=== PATIENT | male | born 1970 | race Two or more races ===

== ENCOUNTER 2019-07-26 17:43 | Inpatient (IN) | payer BC ==
[~2019-07-26] VITALS: Ht 177.8 cm; Wt 95.1 kg
[2019-07-26] MEDS ORDERED: LISI-130 PO (18:06)
[2019-07-26] MEDS ORDERED: ASPIRIN CHEWABLE 81 MG TABLET. PO ONE (18:15)
[2019-07-26 18:29] LABS: BASO # 0.1 x10^3/uL (0.0-0.2); BASO % 1 % (0-3); EOS # 0.2 x10^3/uL (0.0-0.7); EOS % 3 % (0-3); HEMATOCRIT 50.6 % (39.0-53.0); HEMOGLOBIN 17.5 g/dL (13.0-17.5); LYMPH # 1.7 x10^3/uL (1.0-4.8); LYMPH % 23 % (24-48); MEAN CORPUSCULAR HEMOGLOBIN 31 pg (25-35); MEAN CORPUSCULAR HGB CONC 35 g/dL (31-37); MEAN CORPUSCULAR VOLUME 90 fL (79-100); MONO # 0.4 x10^3/uL (0.0-1.1); MONO % 6 % (0-9); NEUT # 4.9 x10^3/uL (1.8-7.7); NEUT % 67 % (31-73); PLATELET COUNT 220 x10^3/uL (140-400); RED CELL DISTRIBUTION WIDTH 14.3 % (11.5-14.5); WHITE BLOOD COUNT 7.3 x10^3/uL (4.0-11.0)
[2019-07-26] MEDS ORDERED: LABETALOL 20 MG/4 ML DISP.SYRIN. IVP ONE (18:30)
--- NOTE | 2019-07-26 18:31 | PHYS DOC ---
Past Medical History Past Medical History: Hypertension Past Surgical History: No Surgical History Smoking Status: Never Smoker Alcohol Use: None Adult General Chief Complaint Chief Complaint: CHEST PAIN HPI HPI 49 yo male with underlying history of HTN presents to the ER with complaints of chest pain. Patient states pain started around 3pm today, he was watching TV at the time. Patient describes pain as pressure sensation. Patient states the pain has been intermittent last a few minutes at a time. Patient states pain improved currently however remains. Patient BP 210 systolically. Patient denies headache or visual changes at this time. Nothing makes his symptoms worse, nothing makes his symptoms better. Patient denies nausea on exam. Review of Systems Review of Systems Constitutional: Denies fever or chills [] Eyes: Denies change in visual acuity, redness, or eye pain [] HENT: Denies nasal congestion or sore throat [] Respiratory: Denies cough or shortness of breath [] Cardiovascular: No additional information not addressed in HPI [] GI: Denies abdominal pain, nausea, vomiting, bloody stools or diarrhea [] : Denies dysuria or hematuria [] Musculoskeletal: Denies back pain or joint pain [] Integument: Denies rash or skin lesions [] Neurologic: Denies headache, focal weakness or sensory changes [] Endocrine: Denies polyuria or polydipsia [] All other systems were reviewed and found to be within normal limits, except as documented in this note. Current Medications Current Medications Current Medications Medications (Trade) Dose Ordered Sig/Ryley Start Time Stop Time Status Last Admin Dose Admin Aspirin (Children'S Aspirin) 324 mg 1X ONCE 07/26/19 18:15 07/26/19 18:17 DC 07/26/19 18:47 324 MG Heparin Sodium (Porcine) (Heparin Sodium) 2,450 unit PRN Q6HRS PRN 07/26/19 19:15 Heparin Sodium/ Dextrose 250 ml @ 0 mls/hr CONT PRN 07/26/19 19:15 Labetalol HCl (Normodyne Iv Push) 10 mg 1X ONCE 07/26/19 18:30 07/26/19 18:31 DC 07/26/19 18:48 10 MG Nitroglycerin (Nitrostat) 0.4 mg PRN Q5MIN PRN 07/26/19 18:15 07/27/19 18:14 07/26/19 19:18 0.4 MG Allergies Allergies Allergies Coded Allergies Type Severity Reaction Last Updated Verified No Known Drug Allergies 07/26/19 No Physical Exam Physical Exam Constitutional: Well developed, well nourished, no acute distress, non-toxic appearance. [] HENT: Normocephalic, atraumatic, bilateral external ears normal, oropharynx moist, no oral exudates, nose normal. [] Eyes: PERRLA, EOMI, conjunctiva normal, no discharge. [] Neck: Normal range of motion, no tenderness, supple, no stridor. [] Cardiovascular:Heart rate regular rhythm, no murmur [] Lungs & Thorax: Bilateral breath sounds clear to auscultation [] Abdomen: Bowel sounds normal, soft, no tenderness, no masses, no pulsatile masses. [] Skin: Warm, dry, no erythema, no rash. [] Back: No tenderness, no CVA tenderness. [] Extremities: No tenderness, no cyanosis, no clubbing, ROM intact, no edema. [] Neurologic: Alert and oriented X 3, normal motor function, normal sensory function, no focal deficits noted. [] Psychologic: Affect normal, judgement normal, mood normal. [] Current Patient Data Vital Signs Vital Signs Date Time Temp Pulse Resp B/P (MAP) Pulse Ox O2 Delivery O2 Flow Rate FiO2 07/26/19 19:18 69 173/109 07/26/19 17:43 98.3 16 98 Room Air 98.3 Lab Values Laboratory Tests Test 07/26/19 17:55 White Blood Count 7.3 x10^3/uL (4.0-11.0) Red Blood Count 5.60 x10^6/uL (4.30-5.70) Hemoglobin 17.5 g/dL (13.0-17.5) Hematocrit 50.6 % (39.0-53.0) Mean Corpuscular Volume 90 fL (79-100) Mean Corpuscular Hemoglobin 31 pg (25-35) Mean Corpuscular Hemoglobin Concent 35 g/dL (31-37) Red Cell Distribution Width 14.3 % (11.5-14.5) Platelet Count 220 x10^3/uL (140-400) Neutrophils (%) (Auto) 67 % (31-73) Lymphocytes (%) (Auto) 23 % (24-48) L Monocytes (%) (Auto) 6 % (0-9) Eosinophils (%) (Auto) 3 % (0-3) Basophils (%) (Auto) 1 % (0-3) Neutrophils # (Auto) 4.9 x10^3/uL (1.8-7.7) Lymphocytes # (Auto) 1.7 x10^3/uL (1.0-4.8) Monocytes # (Auto) 0.4 x10^3/uL (0.0-1.1) Eosinophils # (Auto) 0.2 x10^3/uL (0.0-0.7) Basophils # (Auto) 0.1 x10^3/uL (0.0-0.2) Sodium Level 140 mmol/L (136-145) Potassium Level 3.6 mmol/L (3.5-5.1) Chloride Level 101 mmol/L (98-107) Carbon Dioxide Level 27 mmol/L (21-32) Anion Gap 12 (6-14) Blood Urea Nitrogen 31 mg/dL (8-26) H Creatinine 1.6 mg/dL (0.7-1.3) H Estimated GFR (Cockcroft-Gault) 46.0 BUN/Creatinine Ratio 19 (6-20) Glucose Level 116 mg/dL (70-99) H Calcium Level 9.2 mg/dL (8.5-10.1) Magnesium Level 2.1 mg/dL (1.8-2.4) Total Bilirubin 0.4 mg/dL (0.2-1.0) Aspartate Amino Transferase (AST) 31 U/L (15-37) Alanine Aminotransferase (ALT) 40 U/L (16-63) Alkaline Phosphatase 97 U/L (46-116) Troponin I Quantitative 0.463 ng/mL (0.000-0.055) GE-Hid-R-Type Natriuretic Peptide 69 pg/mL (0-124) Total Protein 7.2 g/dL (6.4-8.2) Albumin 3.5 g/dL (3.4-5.0) Albumin/Globulin Ratio 0.9 (1.0-1.7) L Lipase 139 U/L (73-393) Laboratory Tests 07/26/19 17:55 Laboratory Tests 07/26/19 17:55 EKG EKG EKG reviewed patient with normal sinus rhythm, no evidence of ST elevation DE interpretation time 1814[] Radiology/Procedures Radiology/Procedures [facility] [address] [place] [address] IMAGING REPORT Signed PATIENT: ROGERIO DEXTERACCOUNT: [id number] : 1970 LOCATION: ER AGE: 49 SEX: M EXAM STATUS: REG ER ORD. PHYSICIAN: JAROCHO CHIU MD REASON: Chest Pain PROCEDURE: PORTABLE CHEST 1V AP chest. HISTORY: Chest pain AP view was taken of the chest. Patient's taken a very poor inspiration. Heart is upper normal in size. There is crowding of the vasculature. There are no confluent areas of infiltrate. Follow-up PA and lateral views with better inspiration would be of benefit. IMPRESSION: 1. Poor inspiration. 2. No definite infiltrate. Electronically signed by: Juan R Adan MD (07/26/2019 6:49 PM) [id number] DICTATED and SIGNED BY: JUAN R ADAN MD DATE: 07/26/191848 [] Course & Med Decision Making Course & Med Decision Making Pertinent Labs and Imaging studies reviewed. (See chart for details) []49 yo male with underlying history of HTN presents to the ER with complaints of chest pain. Patient states pain started around 3pm today, he was watching TV at the time. Patient describes pain as pressure sensation. Patient states the pain has been intermittent last a few minutes at a time. Patient states pain improved currently however remains. Patient BP 210 systolically. Patient denies headache or visual changes at this time. Nothing makes his symptoms worse, nothing makes his symptoms better. Patient denies nausea on exam. Labs/Imaging reviewed Labetalol 10mg IV x 1 NTG/ASA po upon arrival BP improved 180's systolically Repeat dose of Labetalol 10mg IV x 1 Trop elevated 0.4 - heparin drip initiated in ER Cardiology consult Rai Disclaimer Dragon Disclaimer This electronic medical record was generated, in whole or in part, using a voice recognition dictation system. The HEART Score for CP Pts HEART Score for Chest Pain: HEART Score for Chest Pain Response (Comments) Value History Moderately Suspicious 1 ECG Nonspecific Repolarizatio 1 Age >45 - < 65 1 Risk Factors 1 or 2 Risk Factors 1 Troponin >1-<3x Normal Limit 1 Total 5 Risk Factors: Risk Factors: DM, Current or recent (<one month) smoker, HTN, HLP, family history of CAD, obesity. Risk Scores: Score 0 - 3: 2.5% MACE over next 6 weeks - Discharge Home Score 4 - 6: 20.3% MACE over next 6 weeks - Admit for Clinical Observation Score 7 - 10: 72.7% MACE over next 6 weeks - Early Invasive Strategies Departure Departure Impression: Primary Impression: NSTEMI (non-ST elevated myocardial infarction) Additional Impression: Accelerated hypertension Disposition: ADMITTED INPATIENT Condition: STABLE Referrals: NO PCP (PCP) Critical Care Time Critical care time was 35 minutes exclusive of procedures. Problem Qualifiers JAROCHO CHIU MD Jul 26, 2019 18:31
[2019-07-26] MEDS: NITROGLYCERIN SUBLINGUAL 0.4 MG BOTTLE OF 25. SL PRN ×2 (18:47→19:18)
[2019-07-26 18:48] LABS: CALCIUM 9.2 mg/dL (8.5-10.1); CREATININE 1.6 mg/dL (0.7-1.3); POTASSIUM 3.6 mmol/L (3.5-5.1)
--- NOTE | 2019-07-26 18:52 | RAD ---
AP chest. HISTORY: Chest pain AP view was taken of the chest. Patient's taken a very poor inspiration. Heart is upper normal in size. There is crowding of the vasculature. There are no confluent areas of infiltrate. Follow-up PA and lateral views with better inspiration would be of benefit. IMPRESSION: 1. Poor inspiration. 2. No definite infiltrate. Electronically signed by: Juan R Wright MD (07/26/2019 6:49 PM) [id number]
[2019-07-26 18:54] LABS: ALBUMIN 3.5 g/dL (3.4-5.0); ALBUMIN/GLOBULIN RATIO 0.9 (1.0-1.7); MAGNESIUM 2.1 mg/dL (1.8-2.4); TOTAL BILIRUBIN 0.4 mg/dL (0.2-1.0); TOTAL PROTEIN 7.2 g/dL (6.4-8.2)
[2019-07-26] MEDS ORDERED: HEPARIN for IV BOLUS 10,000 UNIT/10 ML VIAL. IV ONE (19:15)
[2019-07-26 19:30] LABS: PROTHROMBIN TIME PATIENT 11.9 SEC (11.7-14.0)
[2019-07-26] MEDS ORDERED: ACETAMINOPHEN 325 MG TABLET. PO PRN (19:45)
[2019-07-26] MEDS ORDERED: NITROGLYCERIN SUBLINGUAL 0.4 MG BOTTLE OF 25. SL PRN (19:45)
[2019-07-26] MEDS ORDERED: ONDANSETRON PF 4 MG/2 ML VIAL. IV PRN (19:45)
[2019-07-26] MEDS: HEPARIN 25,000UTS/250ML PREMIX 250 ML IV PRN (19:46)
[2019-07-26] MEDS ORDERED: LABETALOL 20 MG/4 ML DISP.SYRIN. IVP PRN (20:00)
--- NOTE | 2019-07-26 21:00 | NUR ---
Admit from ED via gurney to [facility]. A/O x 4. VSS. Ambulate from [facility] to bed in room with steady gait. Family at bedside. Patient Singaporean speaking. Son, Jose Armando, at bed side to interpret for patient. Admit for chest pain and elevated trop. Patient does not have chest pain on arrival but does have left shoulder/back pain rated 5/10. Orientated to room and call light. Reviewed POC to include Heparin drip and troponin lab draws with patient and son. Patient and son verbalized understanding. Patient resting in bed at this time with call light at hand.
[2019-07-26] MEDS: MORPHINE SULFATE 2 MG/ML VIAL. IV PRN (21:12)
[2019-07-26 21:30] VITALS: BP 163/96
[2019-07-26 23:40] VITALS: BP 169/99
[2019-07-27] VITALS (15 sets, daily range): BP systolic 144–184; BP diastolic 74–115
[2019-07-27 02:49] LABS: BASO % 0 % (0-3); EOS % 1 % (0-3); HEMATOCRIT 49.1 % (39.0-53.0); HEMOGLOBIN 16.7 g/dL (13.0-17.5); LYMPH # 1.2 x10^3/uL (1.0-4.8); LYMPH % 16 % (24-48); MEAN CORPUSCULAR HEMOGLOBIN 31 pg (25-35); MEAN CORPUSCULAR HGB CONC 34 g/dL (31-37); MEAN CORPUSCULAR VOLUME 91 fL (79-100); MONO # 0.4 x10^3/uL (0.0-1.1); MONO % 6 % (0-9); NEUT % 78 % (31-73); PLATELET COUNT 220 x10^3/uL (140-400); RED BLOOD COUNT 5.41 x10^6/uL (4.30-5.70); RED CELL DISTRIBUTION WIDTH 13.9 % (11.5-14.5); WHITE BLOOD COUNT 7.8 x10^3/uL (4.0-11.0)
[2019-07-27 03:05] LABS: ALBUMIN 3.1 g/dL (3.4-5.0); CALCIUM 8.3 mg/dL (8.5-10.1); CREATININE 1.4 mg/dL (0.7-1.3); GFR 53.6; TOTAL BILIRUBIN 0.4 mg/dL (0.2-1.0); TOTAL PROTEIN 6.1 g/dL (6.4-8.2)
[2019-07-27] MEDS: HEPARIN for IV BOLUS 10,000 UNIT/10 ML VIAL. IV PRN (03:36)
[2019-07-27] MEDS: MORPHINE SULFATE 2 MG/ML VIAL. IV PRN ×2 (03:49→07:25)
--- NOTE | 2019-07-27 04:11 | NUR ---
Reported Troponin levels 0.463, 2.831, 7.[address] Barber. Orders to continue Heparin drip and keep patient NPO. Morphine given prn for chest pain. Labetalol IV given for elevated BP. Patient resting in bed with call light at hand. at bedside.
--- NOTE | 2019-07-27 05:13 | EKG ---
[facility] [address] [place] [address] Test Date: 2019-07-26 Test Time: 17:48:46 Pat Name: ROGERIO DEXTER Department: Room: Gender: M Family Member Caretaker: JESSICA : 1970 Requested By: JAROCHO CHIU Order Number: [id number] Reading MD: Measurements Intervals [place] Rate: 72 P: 53 [place]: 150 QRS: -15 QRSD: 106 T: 47 QT: 348 QTc: 386 Interpretive Statements SINUS RHYTHM LEFT ATRIAL ABNORMALITY LEFTWARD AXIS RVH WITH REPOLARIZATION ABNORMALITY ABNORMAL ECG No previous ECG available for comparison
--- NOTE | 2019-07-27 08:59 | EKG ---
[facility] [address] [place] [address] Test Date: 2019-07-27 Test Time: 08:46:23 Pat Name: ROGERIO DEXTER Department: Room: 246 1 Gender: M Lead Pastor: : 1970 Requested By: 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 Order Number: [id number] Reading MD: Lawrence Bean MD Measurements Intervals [place] Rate: 66 P: 59 [place]: 148 QRS: -24 QRSD: 88 T: 5 QT: 366 QTc: 385 Interpretive Statements SINUS RHYTHM Electronically Signed On 07-27-2019 9:53:41 FOUNDRY SUPERVISOR by Lawrence Bean MD
[2019-07-27] MEDS ORDERED: IV NORMAL SALINE 1000ML BAG 1,000 ML IV ONE (09:00)
[2019-07-27 09:15] LABS: CHOLESTEROL/HDL RATIO 5.1
[2019-07-27] MEDS ORDERED: LABETALOL 20 MG/4 ML DISP.SYRIN. IVP PRN (09:15)
--- NOTE | 2019-07-27 09:25 | PDOC2 ---
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 ACCESS SERVICE REPRESENTATIVE 07/27/19 0925: CARDIAC CONSULT DATE OF CONSULT Date of Consult DATE: 07/27/19 TIME: 09:09 REASON FOR CONSULT Reason for Consult: NSTEMI, Accelerated HTN REFERRING PHYSICIAN Referring Physician: Ariane SOURCE Source: Chart review, Patient HISTORY OF PRESENT ILLNESS HISTORY OF PRESENT ILLNESS This is a pleasant 49 yo male admitted for complains of chest pain. Details interpreted by RN. Reports that he was laying in bed and watching TV when he started having stabbing pain to his left chest that eventually went to his upper back. No significant dyspnea but associated with nausea. This continued on since 3 PM. No recent changes to his activity tolerance, PADILLA or exertional associated with his job that requires heavy exertion. Reports that he has HTN but only has been taking his 1 BP med 2-3 times a week. He has not been hospitalized for over 30 yrs and does not see a doctor regularly. He does have semblance UMM with pointing out that he snores at night and also has some preiods where he stops breathing but no PND or orthopnea and no peripheral edema. Upon admission he was noted with high BP. To add he has been having upper shoulder primarily to the back below his neck region lately. Denies any frequent NSAID use. Denies taking any analgesic for the discomfort. As an inpt he has received NTG and morphine. PAST MEDICAL HISTORY Past Medical History HTN otherwise no other pertinent history PAST SURGICAL HISTORY Past Surgical History: Appendectomy FAMILY HISTORY Family History noncontributory SOCIAL HISTORY Smoke: No ALCOHOL: none Drugs: None Lives: with Family CURRENT MEDICATIONS CURRENT MEDICATIONS Current Medications Medications (Trade) Dose Ordered Sig/Ryley Route PRN Reason Start Time Stop Time Status Last Admin Dose Admin Aspirin (Children'S Aspirin) 324 mg 1X ONCE PO 07/26/19 18:15 07/26/19 18:17 DC 07/26/19 18:47 Nitroglycerin (Nitrostat) 0.4 mg PRN Q5MIN PRN SL CP RATING > 1/10 07/26/19 18:15 07/26/19 19:47 DC 07/26/19 19:18 Labetalol HCl (Normodyne Iv Push) 10 mg 1X ONCE IVP 07/26/19 18:30 07/26/19 18:31 DC 07/26/19 18:48 Heparin Sodium (Porcine) (Heparin Sodium) 4,000 unit 1X ONCE IV 07/26/19 19:15 07/26/19 19:16 DC 07/26/19 19:43 Heparin Sodium/ Dextrose 250 ml @ 0 mls/hr CONT PRN IV PER PROTOCOL 07/26/19 19:15 07/26/19 19:46 Heparin Sodium (Porcine) (Heparin Sodium) 2,450 unit PRN Q6HRS PRN IV FOR UFH LEVEL LESS THAN 0.2 07/26/19 19:15 07/27/19 03:36 Morphine Sulfate (Morphine Sulfate) 2 mg PRN Q2HR PRN IV PAIN 07/26/19 19:45 07/27/19 19:44 07/27/19 07:25 Labetalol HCl (Normodyne Iv Push) 10 mg PRN Q4HRS PRN IVP ELEVATED BP, SEE COMMENTS 07/26/19 20:00 07/27/19 03:59 ALLERGIES ALLERGIES: Coded Allergies: No Known Drug Allergies (Unverified , 07/26/19) ROS Review of System 14 point ROS evluated with pertinent positives noted per HPI PHYSICAL EXAM General: Alert, Oriented X3, Cooperative, No acute distress HEENT: Atraumatic, Mucous membr. moist/pink Lungs: Clear to auscultation, Normal air movement Heart: Regular rate (SR), Normal S1, Normal S2, No murmurs Abdomen: Soft, No tenderness Extremities: No cyanosis, No edema Skin: No breakdown Neuro: Normal speech, Sensation intact Psych/Mental Status: Mental status NL, Mood NL MUSCULOSKELETAL: Osteoarthritic changes both hands VITALS/I&O VITALS/I&O: Vital Signs Date Time Temp Pulse Resp B/P (MAP) Pulse Ox O2 Delivery O2 Flow Rate FiO2 07/27/19 07:25 16 Room Air 07/27/19 07:00 97.8 68 166/105 (125) 97 97.8 I & O 07/26/19 07/26/19 07/27/19 15:00 23:00 07:00 Intake Total 0 ml 400 ml Output Total 1 ml Balance 0 ml 399 ml LABS Lab: Laboratory Tests Test 07/26/19 17:55 07/26/19 22:29 07/27/19 01:40 White Blood Count 7.3 x10^3/uL (4.0-11.0) 7.8 x10^3/uL (4.0-11.0) Red Blood Count 5.60 x10^6/uL (4.30-5.70) 5.41 x10^6/uL (4.30-5.70) Hemoglobin 17.5 g/dL (13.0-17.5) 16.7 g/dL (13.0-17.5) Hematocrit 50.6 % (39.0-53.0) 49.1 % (39.0-53.0) Mean Corpuscular Volume 90 fL (79-100) 91 fL (79-100) Mean Corpuscular Hemoglobin 31 pg (25-35) 31 pg (25-35) Mean Corpuscular Hemoglobin Concent 35 g/dL (31-37) 34 g/dL (31-37) Red Cell Distribution Width 14.3 % (11.5-14.5) 13.9 % (11.5-14.5) Platelet Count 220 x10^3/uL (140-400) 220 x10^3/uL (140-400) Neutrophils (%) (Auto) 67 % (31-73) 78 % (31-73) H Lymphocytes (%) (Auto) 23 % (24-48) L 16 % (24-48) L Monocytes (%) (Auto) 6 % (0-9) 6 % (0-9) Eosinophils (%) (Auto) 3 % (0-3) 1 % (0-3) Basophils (%) (Auto) 1 % (0-3) 0 % (0-3) Neutrophils # (Auto) 4.9 x10^3/uL (1.8-7.7) 6.0 x10^3/uL (1.8-7.7) Lymphocytes # (Auto) 1.7 x10^3/uL (1.0-4.8) 1.2 x10^3/uL (1.0-4.8) Monocytes # (Auto) 0.4 x10^3/uL (0.0-1.1) 0.4 x10^3/uL (0.0-1.1) Eosinophils # (Auto) 0.2 x10^3/uL (0.0-0.7) 0.0 x10^3/uL (0.0-0.7) Basophils # (Auto) 0.1 x10^3/uL (0.0-0.2) 0.0 x10^3/uL (0.0-0.2) Prothrombin Time 11.9 SEC (11.7-14.0) Prothrombin Time INR 0.9 (0.8-1.1) Activated Partial Thromboplast Time 29 SEC (24-38) Sodium Level 140 mmol/L (136-145) 137 mmol/L (136-145) Potassium Level 3.6 mmol/L (3.5-5.1) 4.0 mmol/L (3.5-5.1) Chloride Level 101 mmol/L (98-107) 103 mmol/L (98-107) Carbon Dioxide Level 27 mmol/L (21-32) 25 mmol/L (21-32) Anion Gap 12 (6-14) 9 (6-14) Blood Urea Nitrogen 31 mg/dL (8-26) H 24 mg/dL (8-26) Creatinine 1.6 mg/dL (0.7-1.3) H 1.4 mg/dL (0.7-1.3) H Estimated GFR (Cockcroft-Gault) 46.0 53.6 BUN/Creatinine Ratio 19 (6-20) 17 (6-20) Glucose Level 116 mg/dL (70-99) H 150 mg/dL (70-99) H Calcium Level 9.2 mg/dL (8.5-10.1) 8.3 mg/dL (8.5-10.1) L Magnesium Level 2.1 mg/dL (1.8-2.4) Total Bilirubin 0.4 mg/dL (0.2-1.0) 0.4 mg/dL (0.2-1.0) Aspartate Amino Transferase (AST) 31 U/L (15-37) 80 U/L (15-37) H Alanine Aminotransferase (ALT) 40 U/L (16-63) 43 U/L (16-63) Alkaline Phosphatase 97 U/L (46-116) 73 U/L (46-116) Troponin I Quantitative 0.463 ng/mL (0.000-0.055) 2.831 ng/mL (0.000-0.055) 7.138 ng/mL (0.000-0.055) GX-Goa-I-Type Natriuretic Peptide 69 pg/mL (0-124) Total Protein 7.2 g/dL (6.4-8.2) 6.1 g/dL (6.4-8.2) L Albumin 3.5 g/dL (3.4-5.0) 3.1 g/dL (3.4-5.0) L Albumin/Globulin Ratio 0.9 (1.0-1.7) L 1.0 (1.0-1.7) Lipase 139 U/L (73-393) Heparin Anti-Xa Act, Unfractionated < 0.10 IU/mL (0.30-0.70) L Laboratory Tests 07/26/19 17:55 07/27/19 01:40 Laboratory Tests 07/26/19 17:55 07/27/19 01:40 ASSESSMENT/PLAN ASSESSMENT/PLAN 1. NSTEMI: ACS features 2. Accelerated HTN 3. Obesity 4. Med noncompliance 5. 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 HLP 7. Metabolic syndrome 8. Suspect CKD3 Recommendations [facility] today, risks and benefits discussed and agreeable to proceed TTE, TSH, lipids, A1C, UA ASA, heparin drip. Start on low maintenance IVF for contrast prep. Labetolol IV PRN Discussed med compliance GDMT Will need outpt UMM workup Dietitian consult. JERRI PAN MD 07/27/19 1711: CARDIAC CONSULT ASSESSMENT/PLAN ASSESSMENT/PLAN 49-year-old man presenting to the hospital with chest pain and elevated troponin. 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 He also underwent complex PCI of the LAD as well. Continue monitoring closely with continuation of heparin drip and tirofiban drip given that he had no reflow in the distal LAD segment. Supportive care for now. We will follow along closely. 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 APRN Jul 27, 2019 09:25 JERRI PAN MD Jul 27, 2019 17:11
[2019-07-27] MEDS ORDERED: LABETALOL 20 MG/4 ML DISP.SYRIN. IVP ONE (09:30)
[2019-07-27] MEDS ORDERED: LIDOCAINE 1% PF 2 ML VIAL. ONE (09:32)
[2019-07-27] MEDS ORDERED: IODIXANOL 320 MG/ML 100 ML VIAL. ONE ×3 (09:33→10:57)
[2019-07-27] MEDS ORDERED: fentaNYL PF VIAL 100 MCG/2 ML VIAL ONE (09:34)
[2019-07-27] MEDS ORDERED: MIDAZOLAM HCL/PF 5 MG/5 ML VIAL. ONE (09:34)
[2019-07-27] MEDS ORDERED: HEPARIN for IV BOLUS 10,000 UNIT/10 ML VIAL. ONE (09:34)
[2019-07-27] MEDS ORDERED: VERAPAMIL 5 MG/2 ML VIAL. ONE (09:34)
[2019-07-27] MEDS ORDERED: NITROGLYCERIN 200 MCG/2 ML SYRINGE FOR CATH/VASC LAB. ONE ×2 (09:34→10:50)
[2019-07-27] MEDS ORDERED: LIDOCAINE 1% PF 2 ML VIAL. INJ ONE (10:00)
[2019-07-27] MEDS ORDERED: IODIXANOL 320 MG/ML 100 ML VIAL. IART ONE (10:00)
[2019-07-27] MEDS ORDERED: HEPARIN for IV BOLUS 10,000 UNIT/10 ML VIAL. IART ONE (10:00)
[2019-07-27] MEDS ORDERED: MIDAZOLAM HCL/PF 5 MG/5 ML VIAL. IV ONE (10:00)
[2019-07-27] MEDS ORDERED: VERAPAMIL 5 MG/2 ML VIAL. IART ONE (10:00)
[2019-07-27] MEDS ORDERED: NITROGLYCERIN 200 MCG/2 ML SYRINGE FOR CATH/VASC LAB. IART ONE (10:00)
[2019-07-27] MEDS ORDERED: fentaNYL PF VIAL 100 MCG/2 ML VIAL IV ONE (10:00)
[2019-07-27] MEDS ORDERED: TIROFIBAN 5MG -0.9% NS 100 ML IV ONE (10:11)
--- NOTE | 2019-07-27 10:15 | PDOC1 ---
History and Physical Date of Admission Date of Admission DATE: 07/27/19 TIME: 10:14 Identification/Chief Complaint Chief Complaint SEEN IN ER , 49 yo male with underlying history of HTN presents to the ER with complaints of chest pain. Patient states pain started around 3pm 07/26 , he was watching TV ///. Patient describes pain as pressure sensation. Patient states the pain has been intermittent last a few minutes at a time. Patient states pain improved currently however remains. Patient BP 210 systolically IN ER . /// denies headache or visual changes Past Medical History Past Medical History Past Medical History Past Medical History: Hypertension Past Surgical History: No Surgical History Smoking Status: Never Smoker Alcohol Use: None FHX HTN Past Surgical History Past Surgical History: Appendectomy Family History Family History: High Cholestrol, Hypertension Social History Smoke: No ALCOHOL: none Drugs: None Current Problem List Problem List Problems Medical Problems: (1) Accelerated hypertension Status: Acute (2) NSTEMI (non-ST elevated myocardial infarction) Status: Acute Current Medications Current Medications Current Medications Aspirin (Children'S Aspirin) 324 mg 1X ONCE PO Last administered on 07/26/19at 18:47; Start 07/26/19 at 18:15; Stop 07/26/19 at 18:17; Status DC Nitroglycerin (Nitrostat) 0.4 mg PRN Q5MIN PRN SL CP RATING > 1/10 Last administered on 07/26/19at 19:18; Start 07/26/19 at 18:15; Stop 07/26/19 at 19:47; Status DC Labetalol HCl (Normodyne Iv Push) 10 mg 1X ONCE IVP Last administered on 07/26/19at 18:48; Start 07/26/19 at 18:30; Stop 07/26/19 at 18:31; Status DC Heparin Sodium (Porcine) (Heparin Sodium) 4,000 unit 1X ONCE IV Last administered on 07/26/19at 19:43; Start 07/26/19 at 19:15; Stop 07/26/19 at 19:16; Status DC Heparin Sodium/ Dextrose 250 ml @ 0 mls/hr CONT PRN IV PER PROTOCOL Last administered on 07/26/19at 19:46; Start 07/26/19 at 19:15 Heparin Sodium (Porcine) (Heparin Sodium) 2,450 unit PRN Q6HRS PRN IV FOR UFH LEVEL LESS THAN 0.2 Last administered on 07/27/19at 03:36; Start 07/26/19 at 19:15 Ondansetron HCl (Zofran) 4 mg PRN Q8HRS PRN IV NAUSEA/VOMITING; Start 07/26/19 at 19:45; Stop 07/27/19 at 19:44 Morphine Sulfate (Morphine Sulfate) 2 mg PRN Q2HR PRN IV PAIN Last administered on 07/27/19at 07:25; Start 07/26/19 at 19:45; Stop 07/27/19 at 19:44 Acetaminophen (Tylenol) 650 mg PRN Q4HRS PRN PO FEVER; Start 07/26/19 at 19:45; Stop 07/27/19 at 19:44 Nitroglycerin (Nitrostat) 0.4 mg PRN Q5MIN PRN SL CHEST PAIN; Start 07/26/19 at 19:45; Stop 07/27/19 at 19:44 Labetalol HCl (Normodyne Iv Push) 10 mg PRN Q4HRS PRN IVP ELEVATED BP, SEE COMMENTS Last administered on 07/27/19at 03:59; Start 07/26/19 at 20:00; Stop 07/27/19 at 09:11; Status DC Sodium Chloride 1,000 ml @ 75 mls/hr 1X ONCE IV ; Start 07/27/19 at 09:00; Stop 07/27/19 at 22:19 Labetalol HCl (Normodyne Iv Push) 20 mg PRN Q4HRS PRN IVP ELEVATED BP, SEE COMMENTS; Start 07/27/19 at 09:15 Atorvastatin Calcium (Lipitor) 40 mg QHS PO ; Start 07/27/19 at 21:00 Labetalol HCl (Normodyne Iv Push) 20 mg 1X ONCE IVP Last administered on 07/27/19at 09:30; Start 07/27/19 at 09:30; Stop 07/27/19 at 09:31; Status DC Lidocaine HCl (Xylocaine-Mpf 1% 2ml Vial) 2 ml STK-MED ONCE .ROUTE ; Start 07/27/19 at 09:32; Stop 07/27/19 at 09:32; Status DC Heparin Sodium/ Sodium Chloride 1,000 ml @ As Directed STK-MED ONCE .ROUTE ; Start 07/27/19 at 09:32; Stop 07/27/19 at 09:33; Status DC Iodixanol (Visipaque 320) 100 ml STK-MED ONCE .ROUTE ; Start 07/27/19 at 09:33; Stop 07/27/19 at 09:34; Status DC Fentanyl Citrate (Fentanyl 2ml Vial) 100 mcg STK-MED ONCE .ROUTE ; Start 07/27/19 at 09:34; Stop 07/27/19 at 09:34; Status DC Midazolam HCl (Versed) 5 mg STK-MED ONCE .ROUTE ; Start 07/27/19 at 09:34; Stop 07/27/19 at 09:34; Status DC Heparin Sodium (Porcine) (Heparin Sodium) 10,000 unit STK-MED ONCE .ROUTE ; Start 07/27/19 at 09:34; Stop 07/27/19 at 09:34; Status DC Verapamil HCl (Verapamil) 5 mg STK-MED ONCE .ROUTE ; Start 07/27/19 at 09:34; Stop 07/27/19 at 09:34; Status DC Nitroglycerin (Nitroglycerin) 200 mcg STK-MED ONCE .ROUTE ; Start 07/27/19 at 09:34; Stop 07/27/19 at 09:35; Status DC Nitroglycerin (Nitroglycerin) 200 mcg 1X ONCE IART ; Start 07/27/19 at 10:00; Stop 07/27/19 at 10:05; Status DC Verapamil HCl (Verapamil) 2.5 mg 1X ONCE IART ; Start 07/27/19 at 10:00; Stop 07/27/19 at 10:05; Status DC Heparin Sodium (Porcine) (Heparin Sodium) 2,500 unit 1X ONCE IART ; Start 07/27/19 at 10:00; Stop 07/27/19 at 10:05; Status DC Heparin Sodium/ Sodium Chloride (HEPARIN for ARTERIAL LINE FLUSH) 1,000 unit 1X ONCE IART ; Start 07/27/19 at 10:00; Stop 07/27/19 at 10:05; Status DC Heparin Sodium/ Sodium Chloride (HEPARIN for ARTERIAL LINE FLUSH) 1,000 unit 1X ONCE IART ; Start 07/27/19 at 10:00; Stop 07/27/19 at 10:05; Status DC Midazolam HCl (Versed) 5 mg 1X ONCE IV ; Start 07/27/19 at 10:00; Stop 07/27/19 at 10:05; Status DC Fentanyl Citrate (Fentanyl 2ml Vial) 100 mcg 1X ONCE IV ; Start 07/27/19 at 10:00; Stop 07/27/19 at 10:05; Status DC Iodixanol (Visipaque 320) 100 ml 1X ONCE IART ; Start 07/27/19 at 10:00; Stop 07/27/19 at 10:05; Status DC Lidocaine HCl (Xylocaine-Mpf 1% 2ml Vial) 2 ml 1X ONCE INJ ; Start 07/27/19 at 10:00; Stop 07/27/19 at 10:05; Status DC Tirofiban/Sodium Chloride 100 ml @ As Directed STK-MED ONCE IV ; Start 07/27/19 at 10:11; Stop 07/27/19 at 10:11; Status DC Active Scripts Active Reported Lisinopril 40 Mg Tablet 1 Tab PO DAILY Allergies Allergies: Coded Allergies: No Known Drug Allergies (Unverified , 07/26/19) ROS Review of System Review of Systems Review of Systems Constitutional: Denies fever or chills [] Eyes: Denies change in visual acuity, redness, or eye pain [] HENT: Denies nasal congestion or sore throat [] Respiratory: Denies cough or shortness of breath [] Cardiovascular: No additional information not addressed in HPI [] GI: Denies abdominal pain, nausea, vomiting, bloody stools or diarrhea [] : Denies dysuria or hematuria [] Musculoskeletal: Denies back pain or joint pain [] Integument: Denies rash or skin lesions [] Neurologic: Denies headache, focal weakness or sensory changes [] Endocrine: Denies polyuria or polydipsia [] 14 PT systems were reviewed and found to be within normal limits, except as documented Physical Exam Physical Exam Physical Exam Physical Exam Constitutional: Well developed, well nourished, no acute distress, non-toxic appearance. [] HENT: Normocephalic, atraumatic, bilateral external ears normal, oropharynx moist, no oral exudates, nose normal. [] Eyes: PERRLA, EOMI, conjunctiva normal, no discharge. [] Neck: Normal range of motion, no tenderness, supple, no stridor. [] Cardiovascular:Heart rate regular rhythm, no murmur [] Lungs & Thorax: Bilateral breath sounds clear to auscultation [] Abdomen: Bowel sounds normal, soft, no tenderness, no masses, no pulsatile masses. [] Skin: Warm, dry, no erythema, no rash. [] Back: No tenderness, no CVA tenderness. [] Extremities: No tenderness, no cyanosis, no clubbing, ROM intact, no edema. [] Neurologic: Alert and oriented X 3, normal motor function, normal sensory function, no focal deficits noted. [] Psychologic: Affect normal, judgment normal, mood normal. [] General: Alert, Oriented X3, Cooperative, No acute distress HEENT: Atraumatic, PERRLA, EOMI, Mucous membr. moist/pink Lungs: Normal air movement Heart: RRR Breasts: Not examined Abdomen: Soft Rectal Exam: not examined Extremities: No cyanosis Neuro: Normal speech, Cranial nerves 3-12 NL Psych/Mental Status: Mental status NL, Mood NL Vitals Vitals Vital Signs Date Time Temp Pulse Resp B/P (MAP) Pulse Ox O2 Delivery O2 Flow Rate FiO2 07/27/19 09:30 76 167/105 07/27/19 07:25 16 Room Air 07/27/19 07:00 97.8 97 97.8 Labs Labs Laboratory Tests Test 07/26/19 17:55 07/26/19 22:29 07/27/19 01:40 White Blood Count 7.3 x10^3/uL (4.0-11.0) 7.8 x10^3/uL (4.0-11.0) Red Blood Count 5.60 x10^6/uL (4.30-5.70) 5.41 x10^6/uL (4.30-5.70) Hemoglobin 17.5 g/dL (13.0-17.5) 16.7 g/dL (13.0-17.5) Hematocrit 50.6 % (39.0-53.0) 49.1 % (39.0-53.0) Mean Corpuscular Volume 90 fL (79-100) 91 fL (79-100) Mean Corpuscular Hemoglobin 31 pg (25-35) 31 pg (25-35) Mean Corpuscular Hemoglobin Concent 35 g/dL (31-37) 34 g/dL (31-37) Red Cell Distribution Width 14.3 % (11.5-14.5) 13.9 % (11.5-14.5) Platelet Count 220 x10^3/uL (140-400) 220 x10^3/uL (140-400) Neutrophils (%) (Auto) 67 % (31-73) 78 % (31-73) Lymphocytes (%) (Auto) 23 % (24-48) 16 % (24-48) Monocytes (%) (Auto) 6 % (0-9) 6 % (0-9) Eosinophils (%) (Auto) 3 % (0-3) 1 % (0-3) Basophils (%) (Auto) 1 % (0-3) 0 % (0-3) Neutrophils # (Auto) 4.9 x10^3/uL (1.8-7.7) 6.0 x10^3/uL (1.8-7.7) Lymphocytes # (Auto) 1.7 x10^3/uL (1.0-4.8) 1.2 x10^3/uL (1.0-4.8) Monocytes # (Auto) 0.4 x10^3/uL (0.0-1.1) 0.4 x10^3/uL (0.0-1.1) Eosinophils # (Auto) 0.2 x10^3/uL (0.0-0.7) 0.0 x10^3/uL (0.0-0.7) Basophils # (Auto) 0.1 x10^3/uL (0.0-0.2) 0.0 x10^3/uL (0.0-0.2) Prothrombin Time 11.9 SEC (11.7-14.0) Prothromb Time International Ratio 0.9 (0.8-1.1) Activated Partial Thromboplast Time 29 SEC (24-38) Sodium Level 140 mmol/L (136-145) 137 mmol/L (136-145) Potassium Level 3.6 mmol/L (3.5-5.1) 4.0 mmol/L (3.5-5.1) Chloride Level 101 mmol/L (98-107) 103 mmol/L (98-107) Carbon Dioxide Level 27 mmol/L (21-32) 25 mmol/L (21-32) Anion Gap 12 (6-14) 9 (6-14) Blood Urea Nitrogen 31 mg/dL (8-26) 24 mg/dL (8-26) Creatinine 1.6 mg/dL (0.7-1.3) 1.4 mg/dL (0.7-1.3) Estimated GFR (Cockcroft-Gault) 46.0 53.6 BUN/Creatinine Ratio 19 (6-20) 17 (6-20) Glucose Level 116 mg/dL (70-99) 150 mg/dL (70-99) Calcium Level 9.2 mg/dL (8.5-10.1) 8.3 mg/dL (8.5-10.1) Magnesium Level 2.1 mg/dL (1.8-2.4) Total Bilirubin 0.4 mg/dL (0.2-1.0) 0.4 mg/dL (0.2-1.0) Aspartate Amino Transf (AST/SGOT) 31 U/L (15-37) 80 U/L (15-37) Alanine Aminotransferase (ALT/SGPT) 40 U/L (16-63) 43 U/L (16-63) Alkaline Phosphatase 97 U/L (46-116) 73 U/L (46-116) Troponin I Quantitative 0.463 ng/mL (0.000-0.055) 2.831 ng/mL (0.000-0.055) 7.138 ng/mL (0.000-0.055) LQ-Tsr-B-Type Natriuretic Peptide 69 pg/mL (0-124) Total Protein 7.2 g/dL (6.4-8.2) 6.1 g/dL (6.4-8.2) Albumin 3.5 g/dL (3.4-5.0) 3.1 g/dL (3.4-5.0) Albumin/Globulin Ratio 0.9 (1.0-1.7) 1.0 (1.0-1.7) Lipase 139 U/L (73-393) Heparin Anti-Xa Act, Unfractionated < 0.10 IU/mL (0.30-0.70) Triglycerides Level 279 mg/dL (0-150) Cholesterol Level 250 mg/dL (0-200) LDL Cholesterol, Calculated 145 mg/dL (0-100) VLDL Cholesterol, Calculated 56 mg/dL (0-40) Non-HDL Cholesterol Calculated 201 mg/dL (0-129) HDL Cholesterol 49 mg/dL (40-60) Cholesterol/HDL Ratio 5.1 Thyroid Stimulating Hormone (TSH) 0.572 uIU/mL (0.358-3.74) Laboratory Tests Test 07/26/19 17:55 07/26/19 22:29 07/27/19 01:40 White Blood Count 7.3 x10^3/uL (4.0-11.0) 7.8 x10^3/uL (4.0-11.0) Red Blood Count 5.60 x10^6/uL (4.30-5.70) 5.41 x10^6/uL (4.30-5.70) Hemoglobin 17.5 g/dL (13.0-17.5) 16.7 g/dL (13.0-17.5) Hematocrit 50.6 % (39.0-53.0) 49.1 % (39.0-53.0) Mean Corpuscular Volume 90 fL (79-100) 91 fL (79-100) Mean Corpuscular Hemoglobin 31 pg (25-35) 31 pg (25-35) Mean Corpuscular Hemoglobin Concent 35 g/dL (31-37) 34 g/dL (31-37) Red Cell Distribution Width 14.3 % (11.5-14.5) 13.9 % (11.5-14.5) Platelet Count 220 x10^3/uL (140-400) 220 x10^3/uL (140-400) Neutrophils (%) (Auto) 67 % (31-73) 78 % (31-73) Lymphocytes (%) (Auto) 23 % (24-48) 16 % (24-48) Monocytes (%) (Auto) 6 % (0-9) 6 % (0-9) Eosinophils (%) (Auto) 3 % (0-3) 1 % (0-3) Basophils (%) (Auto) 1 % (0-3) 0 % (0-3) Neutrophils # (Auto) 4.9 x10^3/uL (1.8-7.7) 6.0 x10^3/uL (1.8-7.7) Lymphocytes # (Auto) 1.7 x10^3/uL (1.0-4.8) 1.2 x10^3/uL (1.0-4.8) Monocytes # (Auto) 0.4 x10^3/uL (0.0-1.1) 0.4 x10^3/uL (0.0-1.1) Eosinophils # (Auto) 0.2 x10^3/uL (0.0-0.7) 0.0 x10^3/uL (0.0-0.7) Basophils # (Auto) 0.1 x10^3/uL (0.0-0.2) 0.0 x10^3/uL (0.0-0.2) Prothrombin Time 11.9 SEC (11.7-14.0) Prothromb Time International Ratio 0.9 (0.8-1.1) Activated Partial Thromboplast Time 29 SEC (24-38) Sodium Level 140 mmol/L (136-145) 137 mmol/L (136-145) Potassium Level 3.6 mmol/L (3.5-5.1) 4.0 mmol/L (3.5-5.1) Chloride Level 101 mmol/L (98-107) 103 mmol/L (98-107) Carbon Dioxide Level 27 mmol/L (21-32) 25 mmol/L (21-32) Anion Gap 12 (6-14) 9 (6-14) Blood Urea Nitrogen 31 mg/dL (8-26) 24 mg/dL (8-26) Creatinine 1.6 mg/dL (0.7-1.3) 1.4 mg/dL (0.7-1.3) Estimated GFR (Cockcroft-Gault) 46.0 53.6 BUN/Creatinine Ratio 19 (6-20) 17 (6-20) Glucose Level 116 mg/dL (70-99) 150 mg/dL (70-99) Calcium Level 9.2 mg/dL (8.5-10.1) 8.3 mg/dL (8.5-10.1) Magnesium Level 2.1 mg/dL (1.8-2.4) Total Bilirubin 0.4 mg/dL (0.2-1.0) 0.4 mg/dL (0.2-1.0) Aspartate Amino Transf (AST/SGOT) 31 U/L (15-37) 80 U/L (15-37) Alanine Aminotransferase (ALT/SGPT) 40 U/L (16-63) 43 U/L (16-63) Alkaline Phosphatase 97 U/L (46-116) 73 U/L (46-116) Troponin I Quantitative 0.463 ng/mL (0.000-0.055) 2.831 ng/mL (0.000-0.055) 7.138 ng/mL (0.000-0.055) YT-Hig-U-Type Natriuretic Peptide 69 pg/mL (0-124) Total Protein 7.2 g/dL (6.4-8.2) 6.1 g/dL (6.4-8.2) Albumin 3.5 g/dL (3.4-5.0) 3.1 g/dL (3.4-5.0) Albumin/Globulin Ratio 0.9 (1.0-1.7) 1.0 (1.0-1.7) Lipase 139 U/L (73-393) Heparin Anti-Xa Act, Unfractionated < 0.10 IU/mL (0.30-0.70) Triglycerides Level 279 mg/dL (0-150) Cholesterol Level 250 mg/dL (0-200) LDL Cholesterol, Calculated 145 mg/dL (0-100) VLDL Cholesterol, Calculated 56 mg/dL (0-40) Non-HDL Cholesterol Calculated 201 mg/dL (0-129) HDL Cholesterol 49 mg/dL (40-60) Cholesterol/HDL Ratio 5.1 Thyroid Stimulating Hormone (TSH) 0.572 uIU/mL (0.358-3.74) Images Images AP chest. HISTORY: Chest pain AP view was taken of the chest. Patient's taken a very poor inspiration. Heart is upper normal in size. There is crowding of the vasculature. There are no confluent areas of infiltrate. Follow-up PA and lateral views with better inspiration would be of benefit. IMPRESSION: 1. Poor inspiration. 2. No definite infiltrate. Electronically signed by: Nagi Adan MD (07/26/2019 6:49 PM) [id number] DICTATED and SIGNED BY: NAGI ADAN MD DATE: 07/26/19 1849 VTE Prophylaxis Ordered VTE Prophylaxis Devices: Yes VTE Pharmacological Prophylaxi: Yes Assessment/Plan Assessment/Plan IMPRESSION 1, ACUTE NSTEMI: ACS 2. Accelerated HTN 3. Obesity 4. Med noncompliance 5. SLEEP APNEA 6. HYPERLIPIDEMIA 7. Metabolic syndrome PLAN ADMIT CVC BED CONSULT CARDIOLOGY RILEY JOHNSON MD Jul 27, 2019 10:15
[2019-07-27] MEDS: TIROFIBAN 5MG -0.9% NS 100 ML IV PRN ×3 (10:16→18:23)
[2019-07-27] MEDS ORDERED: HEPARIN for IV BOLUS 10,000 UNIT/10 ML VIAL. IV ONE (10:18)
[2019-07-27] MEDS ORDERED: NITROGLYCERIN 200 MCG/2 ML SYRINGE FOR CATH/VASC LAB. ICAR ONE (11:00)
[2019-07-27] MEDS ORDERED: PHENYLEPHRINE in 0.9% NACL PF 1 MG/10 ML SYRINGE. IV ONE (11:05)
[2019-07-27] MEDS ORDERED: ATROPINE 1 MG/10 ML DISP.SYRINGE. ONE (11:06)
[2019-07-27] MEDS ORDERED: NITROPRUSSIDE SODIUM 50 MG/2 ML VIAL IV ONE (11:11)
[2019-07-27] MEDS ORDERED: NITROPRUSSIDE 100MCG/ML SYRINGE. INT CORON ONE (11:30)
--- NOTE | 2019-07-27 11:35 | CARD ---
MR#: [id number] Date of Study: 07/27/2019 Ordering Physician: 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, Referring Physician: 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, Tech: Aretha Mitchell APPROVED REPORT EXAM: Two-dimensional and M-mode echocardiogram with Doppler and color Doppler. Other Information Quality : AverageHR: 78bpm Technically limited study due to body habitus. INDICATION Chest Pain Non STEMI RISK FACTORS Hypertension 2D DIMENSIONS Left Atrium(2D)3.6 (1.6-4.0cm)IVSd1.2 (0.7-1.1cm) Aortic Root(2D)3.0 (2.0-3.7cm)LVDd5.5 (3.9-5.9cm) LVOT Diameter1.9 (1.8-2.4cm)PWd1.3 (0.7-1.1cm) LVDs2.9 (2.5-4.0cm)FS (%) 46.3 % SV113.1 mlLVEF(%)77.1 (>50%) Aortic Valve AoV Peak Kian.141.0cm/sAoV VTI31.4cm AO Peak GR.7.9mmHgLVOT VTI 23.17cm AO Mean GR.6mmHg Mitral Valve MV E Nrxgzenw71.5cm/sMV E Peak Gr.3mmHg MV DECEL [id number] A Qynvusat79.5cm/s MV E Mean Gr.2mmHgE/A Ratio0.8 TDI Lateral E' P. V7.98cm/sMedial E' P. V8.11cm/s E/Lateral E'9.1E/Medial E'8.9 Tricuspid Valve TR P. Gfnanqfx199yd/sRAP [id number] TR Peak Gr.60ehRxVHUS34iiVb Pulmonary Vein S1 Zbgogytb64.7cm/sS2 Aelksekl99.76cm/s D2 Tlkvypjt29.8cm/sPVa [id number] LEFT VENTRICLE The left ventricle is normal size. There is mild to moderate concentric left ventricular hypertrophy. The left ventricular systolic function is low normal. The Ejection Fraction is 50%. Septal wall joanie on consistent with conduction abnormality. Mild global hypokinesis. Transmitral Doppler flow pattern is Grade I-abnormal relaxation pattern. RIGHT VENTRICLE The right ventricle is normal size. There is normal right ventricular wall thickness. The right ventr icular systolic function is normal. ATRIA The left atrium size is normal. The right atrium size is normal. The interatrial septum is intact wit h no evidence for an atrial septal defect or patent foramen ovale as noted on 2-D or Doppler imaging. AORTIC VALVE The aortic valve is normal in structure and function. Doppler and Color Flow revealed no significant aortic regurgitation. There is no significant aortic valvular stenosis. MITRAL VALVE The mitral valve is normal in structure and function. There is no evidence of mitral valve prolapse. There is no mitral valve stenosis. Doppler and Color Flow revealed no mitral valve regurgitation note d. TRICUSPID VALVE The tricuspid valve is not well visualized. Doppler and Color Flow revealed trace tricuspid regurgita tion with an estimated PAP of 26 mmHg. There is no tricuspid valve stenosis. PULMONIC VALVE The pulmonic valve is not well visualized. Doppler and Color Flow revealed no pulmonic valvular regur gitation. There is no pulmonic valvular stenosis. GREAT VESSELS The aortic root is normal in size. The ascending aorta is normal in size. The IVC is normal in size a nd collapses >50% with inspiration. PERICARDIAL EFFUSION There is no evidence of significant pericardial effusion. Critical Notification Critical Value: No <Conclusion> The left ventricular systolic function is low normal. The Ejection Fraction is 50%. Septal wall motion consistent with conduction abnormality. Mild global hypokinesis. Signed by : Lawrence Bean, Electronically Approved : 07/27/2019 11:35:19
[2019-07-27] MEDS ORDERED: PRASUGREL 10 MG TABLET. ONE (11:40)
[2019-07-27] MEDS ORDERED: PRASUGREL 10 MG TABLET. PO ONE (11:42)
--- NOTE | 2019-07-27 12:02 | NUR ---
SS following for discharge planning. SS reviewed pt chart. Pt is from home with spouse and is currently requiring oxygen. SS will continue to follow for discharge planning.
[2019-07-27 13:49] LABS: BILIRUBIN,URINE NEGATIVE (NEG); CLARITY,URINE CLEAR; COLOR,URINE YELLOW; NITRITE,URINE NEGATIVE (NEG); PROTEIN,URINE 100 mg/dL (NEG-TRACE); UROBILINOGEN,URINE 0.2 mg/dL (0.2 mg/dL)
[2019-07-27] MEDS ORDERED: amLODIPine BESYLATE 10 MG TABLET PO ONE ×2 (14:00→14:30)
--- NOTE | 2019-07-27 14:05 | EKG ---
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
[2019-07-27 14:09] LABS: BACTERIA,URINE 0 /HPF (0-FEW); RBC,URINE 0 /HPF (0-2); WBC,URINE 0 /HPF (0-4)
[2019-07-27] MEDS: LIDOCAINE (700MG/PATCH) PATCH. TD SCH (14:14)
[2019-07-27] MEDS: HYDROcodone/APAP 5/325MG 1 TAB TABLET PO PRN ×2 (14:16→21:21)
[2019-07-27] MEDS: HEPARIN 25,000UTS/250ML PREMIX 250 ML IV PRN (17:39)
[2019-07-27] MEDS: CARVEDILOL 6.25 MG TABLET. PO SCH (17:40)
[2019-07-27] MEDS: PATCH REMOVAL. MC SCH (21:00)
[2019-07-27] MEDS: ATORVASTATIN CALCIUM 40 MG TABLET. PO SCH (21:21)
[2019-07-27 23:08] LABS: HEMOGLOBIN A1C 5.8 % (4.8-5.6)
[2019-07-28] MEDS: TIROFIBAN 5MG -0.9% NS 100 ML IV PRN (01:21)
[2019-07-28] MEDS: HEPARIN for IV BOLUS 10,000 UNIT/10 ML VIAL. IV PRN (01:28)
[2019-07-28 02:36] VITALS: BP 139/85
[2019-07-28 07:15] VITALS: BP 159/94
[2019-07-28] MEDS ORDERED: ANTI-COAG MONITOR BY PHARMACY. MC PRN (08:15)
[2019-07-28] MEDS: CARVEDILOL 6.25 MG TABLET. PO SCH (08:49)
[2019-07-28] MEDS: LIDOCAINE (700MG/PATCH) PATCH. TD SCH (09:00)
--- NOTE | 2019-07-28 10:37 | PDOC ---
PROGRESS NOTES History of Present Illness History of Present Illness VTE Prophylaxis Ordered VTE Prophylaxis Devices: Yes VTE Pharmacological Prophylaxi: Yes Assessment/Plan Assessment/Plan IMPRESSION 1, ACUTE NSTEMI: ACS 2. Accelerated HTN 3. Obesity 4. Med noncompliance 5. SLEEP APNEA 6. HYPERLIPIDEMIA 7. Metabolic syndrome PLAN ADMIT CVC BED CONSULT CARDIOLOGY triple-vessel disease occluded obtuse marginal post PCI complex PCI of the LAD ASA 81 mg daily. 30 mg of effient today then 10 mg starting tomorrow. DC heparing start on xarelto 2.5 mg bid Lipitor. Increase coreg and start on lisinopril Vitals Vitals Vital Signs Date Time Temp Pulse Resp B/P (MAP) Pulse Ox O2 Delivery O2 Flow Rate FiO2 07/28/19 08:49 79 159/94 07/28/19 08:00 Room Air 07/28/19 07:15 98.0 20 96 98.0 07/27/19 22:21 2.0 Physical Exam General: Alert, Oriented X3, Cooperative, No acute distress Heart: Regular rate (SR), Normal S1, Normal S2, No murmurs Abdomen: Soft Extremities: No cyanosis Skin: No breakdown Labs LABS Laboratory Tests Test 07/27/19 11:07 07/27/19 13:05 07/28/19 00:05 07/28/19 07:55 Activated Clotting Time 292 sec (92-181) Urine Collection Type Unknown Urine Color Yellow Urine Clarity Clear Urine pH 7.0 Urine Specific [place] >=1.030 Urine Protein 100 mg/dL (NEG-TRACE) Urine Glucose (UA) Negative mg/dL (NEG) Urine Ketones (Stick) Negative mg/dL (NEG) Urine Blood Trace (NEG) Urine Nitrite Negative (NEG) Urine Bilirubin Negative (NEG) Urine Urobilinogen Dipstick 0.2 mg/dL (0.2 mg/dL) Urine Leukocyte Esterase Negative (NEG) Urine RBC 0 /HPF (0-2) Urine WBC 0 /HPF (0-4) Urine Bacteria 0 /HPF (0-FEW) Heparin Anti-Xa Act, Unfractionated < 0.10 IU/mL (0.30-0.70) 0.45 IU/mL (0.30-0.70) Assessment and Plan Assessmemt and Plan Problems Medical Problems: (1) Accelerated hypertension Status: Acute (2) NSTEMI (non-ST elevated myocardial infarction) Status: Acute Comment Review of Relevant I have reviewed the following items amadou (where applicable) has been applied. Labs Laboratory Tests Test 07/26/19 17:55 07/26/19 22:29 07/27/19 01:40 07/27/19 10:13 White Blood Count 7.3 x10^3/uL (4.0-11.0) 7.8 x10^3/uL (4.0-11.0) Red Blood Count 5.60 x10^6/uL (4.30-5.70) 5.41 x10^6/uL (4.30-5.70) Hemoglobin 17.5 g/dL (13.0-17.5) 16.7 g/dL (13.0-17.5) Hematocrit 50.6 % (39.0-53.0) 49.1 % (39.0-53.0) Mean Corpuscular Volume 90 fL (79-100) 91 fL (79-100) Mean Corpuscular Hemoglobin 31 pg (25-35) 31 pg (25-35) Mean Corpuscular Hemoglobin Concent 35 g/dL (31-37) 34 g/dL (31-37) Red Cell Distribution Width 14.3 % (11.5-14.5) 13.9 % (11.5-14.5) Platelet Count 220 x10^3/uL (140-400) 220 x10^3/uL (140-400) Neutrophils (%) (Auto) 67 % (31-73) 78 % (31-73) Lymphocytes (%) (Auto) 23 % (24-48) 16 % (24-48) Monocytes (%) (Auto) 6 % (0-9) 6 % (0-9) Eosinophils (%) (Auto) 3 % (0-3) 1 % (0-3) Basophils (%) (Auto) 1 % (0-3) 0 % (0-3) Neutrophils # (Auto) 4.9 x10^3/uL (1.8-7.7) 6.0 x10^3/uL (1.8-7.7) Lymphocytes # (Auto) 1.7 x10^3/uL (1.0-4.8) 1.2 x10^3/uL (1.0-4.8) Monocytes # (Auto) 0.4 x10^3/uL (0.0-1.1) 0.4 x10^3/uL (0.0-1.1) Eosinophils # (Auto) 0.2 x10^3/uL (0.0-0.7) 0.0 x10^3/uL (0.0-0.7) Basophils # (Auto) 0.1 x10^3/uL (0.0-0.2) 0.0 x10^3/uL (0.0-0.2) Prothrombin Time 11.9 SEC (11.7-14.0) Prothromb Time International Ratio 0.9 (0.8-1.1) Activated Partial Thromboplast Time 29 SEC (24-38) Sodium Level 140 mmol/L (136-145) 137 mmol/L (136-145) Potassium Level 3.6 mmol/L (3.5-5.1) 4.0 mmol/L (3.5-5.1) Chloride Level 101 mmol/L (98-107) 103 mmol/L (98-107) Carbon Dioxide Level 27 mmol/L (21-32) 25 mmol/L (21-32) Anion Gap 12 (6-14) 9 (6-14) Blood Urea Nitrogen 31 mg/dL (8-26) 24 mg/dL (8-26) Creatinine 1.6 mg/dL (0.7-1.3) 1.4 mg/dL (0.7-1.3) Estimated GFR (Cockcroft-Gault) 46.0 53.6 BUN/Creatinine Ratio 19 (6-20) 17 (6-20) Glucose Level 116 mg/dL (70-99) 150 mg/dL (70-99) Calcium Level 9.2 mg/dL (8.5-10.1) 8.3 mg/dL (8.5-10.1) Magnesium Level 2.1 mg/dL (1.8-2.4) Total Bilirubin 0.4 mg/dL (0.2-1.0) 0.4 mg/dL (0.2-1.0) Aspartate Amino Transf (AST/SGOT) 31 U/L (15-37) 80 U/L (15-37) Alanine Aminotransferase (ALT/SGPT) 40 U/L (16-63) 43 U/L (16-63) Alkaline Phosphatase 97 U/L (46-116) 73 U/L (46-116) Troponin I Quantitative 0.463 ng/mL (0.000-0.055) 2.831 ng/mL (0.000-0.055) 7.138 ng/mL (0.000-0.055) MP-Uug-F-Type Natriuretic Peptide 69 pg/mL (0-124) Total Protein 7.2 g/dL (6.4-8.2) 6.1 g/dL (6.4-8.2) Albumin 3.5 g/dL (3.4-5.0) 3.1 g/dL (3.4-5.0) Albumin/Globulin Ratio 0.9 (1.0-1.7) 1.0 (1.0-1.7) Lipase 139 U/L (73-393) Heparin Anti-Xa Act, Unfractionated < 0.10 IU/mL (0.30-0.70) Hemoglobin A1c 5.8 % (4.8-5.6) Triglycerides Level 279 mg/dL (0-150) Cholesterol Level 250 mg/dL (0-200) LDL Cholesterol, Calculated 145 mg/dL (0-100) VLDL Cholesterol, Calculated 56 mg/dL (0-40) Non-HDL Cholesterol Calculated 201 mg/dL (0-129) HDL Cholesterol 49 mg/dL (40-60) Cholesterol/HDL Ratio 5.1 Thyroid Stimulating Hormone (TSH) 0.572 uIU/mL (0.358-3.74) Activated Clotting Time 146 sec (92-181) Test 07/27/19 11:07 07/27/19 13:05 07/28/19 00:05 07/28/19 07:55 Activated Clotting Time 292 sec (92-181) Urine Collection Type Unknown Urine Color Yellow Urine Clarity Clear Urine pH 7.0 Urine Specific [place] >=1.030 Urine Protein 100 mg/dL (NEG-TRACE) Urine Glucose (UA) Negative mg/dL (NEG) Urine Ketones (Stick) Negative mg/dL (NEG) Urine Blood Trace (NEG) Urine Nitrite Negative (NEG) Urine Bilirubin Negative (NEG) Urine Urobilinogen Dipstick 0.2 mg/dL (0.2 mg/dL) Urine Leukocyte Esterase Negative (NEG) Urine RBC 0 /HPF (0-2) Urine WBC 0 /HPF (0-4) Urine Bacteria 0 /HPF (0-FEW) Heparin Anti-Xa Act, Unfractionated < 0.10 IU/mL (0.30-0.70) 0.45 IU/mL (0.30-0.70) Laboratory Tests Test 07/27/19 11:07 07/27/19 13:05 07/28/19 00:05 07/28/19 07:55 Activated Clotting Time 292 sec (92-181) Urine Collection Type Unknown Urine Color Yellow Urine Clarity Clear Urine pH 7.0 Urine Specific [place] >=1.030 Urine Protein 100 mg/dL (NEG-TRACE) Urine Glucose (UA) Negative mg/dL (NEG) Urine Ketones (Stick) Negative mg/dL (NEG) Urine Blood Trace (NEG) Urine Nitrite Negative (NEG) Urine Bilirubin Negative (NEG) Urine Urobilinogen Dipstick 0.2 mg/dL (0.2 mg/dL) Urine Leukocyte Esterase Negative (NEG) Urine RBC 0 /HPF (0-2) Urine WBC 0 /HPF (0-4) Urine Bacteria 0 /HPF (0-FEW) Heparin Anti-Xa Act, Unfractionated < 0.10 IU/mL (0.30-0.70) 0.45 IU/mL (0.30-0.70) Medications Current Medications Aspirin (Children'S Aspirin) 324 mg 1X ONCE PO Last administered on 07/26/19at 18:47; Start 07/26/19 at 18:15; Stop 07/26/19 at 18:17; Status DC Nitroglycerin (Nitrostat) 0.4 mg PRN Q5MIN PRN SL CP RATING > 1/10 Last administered on 07/26/19at 19:18; Start 07/26/19 at 18:15; Stop 07/26/19 at 19:47; Status DC Labetalol HCl (Normodyne Iv Push) 10 mg 1X ONCE IVP Last administered on 07/26/19at 18:48; Start 07/26/19 at 18:30; Stop 07/26/19 at 18:31; Status DC Heparin Sodium (Porcine) (Heparin Sodium) 4,000 unit 1X ONCE IV Last administered on 07/26/19at 19:43; Start 07/26/19 at 19:15; Stop 07/26/19 at 19:16; Status DC Heparin Sodium/ Dextrose 250 ml @ 0 mls/hr CONT PRN IV PER PROTOCOL Last administered on 07/27/19at 17:39; Start 07/26/19 at 19:15 Heparin Sodium (Porcine) (Heparin Sodium) 2,450 unit PRN Q6HRS PRN IV FOR UFH LEVEL LESS THAN 0.2 Last administered on 07/28/19at 01:28; Start 07/26/19 at 19:15 Ondansetron HCl (Zofran) 4 mg PRN Q8HRS PRN IV NAUSEA/VOMITING; Start 07/26/19 at 19:45; Stop 07/27/19 at 19:44; Status DC Morphine Sulfate (Morphine Sulfate) 2 mg PRN Q2HR PRN IV PAIN Last administered on 07/27/19at 07:25; Start 07/26/19 at 19:45; Stop 07/27/19 at 19:44; Status DC Acetaminophen (Tylenol) 650 mg PRN Q4HRS PRN PO FEVER; Start 07/26/19 at 19:45; Stop 07/27/19 at 19:44; Status DC Nitroglycerin (Nitrostat) 0.4 mg PRN Q5MIN PRN SL CHEST PAIN; Start 07/26/19 at 19:45; Stop 07/27/19 at 19:44; Status DC Labetalol HCl (Normodyne Iv Push) 10 mg PRN Q4HRS PRN IVP ELEVATED BP, SEE COMMENTS Last administered on 07/27/19at 03:59; Start 07/26/19 at 20:00; Stop 07/27/19 at 09:11; Status DC Sodium Chloride 1,000 ml @ 75 mls/hr 1X ONCE IV Last administered on 07/27/19at 09:30; Start 07/27/19 at 09:00; Stop 07/27/19 at 22:19; Status DC Labetalol HCl (Normodyne Iv Push) 20 mg PRN Q4HRS PRN IVP ELEVATED BP, SEE COMMENTS; Start 07/27/19 at 09:15 Atorvastatin Calcium (Lipitor) 40 mg QHS PO Last administered on 07/27/19at 21:21; Start 07/27/19 at 21:00 Labetalol HCl (Normodyne Iv Push) 20 mg 1X ONCE IVP Last administered on 07/27/19at 09:30; Start 07/27/19 at 09:30; Stop 07/27/19 at 09:31; Status DC Lidocaine HCl (Xylocaine-Mpf 1% 2ml Vial) 2 ml STK-MED ONCE .ROUTE ; Start 07/27/19 at 09:32; Stop 07/27/19 at 09:32; Status DC Heparin Sodium/ Sodium Chloride 1,000 ml @ As Directed STK-MED ONCE .ROUTE ; Start 07/27/19 at 09:32; Stop 07/27/19 at 09:33; Status DC Iodixanol (Visipaque 320) 100 ml STK-MED ONCE .ROUTE ; Start 07/27/19 at 09:33; Stop 07/27/19 at 09:34; Status DC Fentanyl Citrate (Fentanyl 2ml Vial) 100 mcg STK-MED ONCE .ROUTE ; Start 07/27/19 at 09:34; Stop 07/27/19 at 09:34; Status DC Midazolam HCl (Versed) 5 mg STK-MED ONCE .ROUTE ; Start 07/27/19 at 09:34; Stop 07/27/19 at 09:34; Status DC Heparin Sodium (Porcine) (Heparin Sodium) 10,000 unit STK-MED ONCE .ROUTE ; Start 07/27/19 at 09:34; Stop 07/27/19 at 09:34; Status DC Verapamil HCl (Verapamil) 5 mg STK-MED ONCE .ROUTE ; Start 07/27/19 at 09:34; Stop 07/27/19 at 09:34; Status DC Nitroglycerin (Nitroglycerin) 200 mcg STK-MED ONCE .ROUTE ; Start 07/27/19 at 09:34; Stop 07/27/19 at 09:35; Status DC Nitroglycerin (Nitroglycerin) 200 mcg 1X ONCE IART Last administered on 07/27/19at 11:45; Start 07/27/19 at 10:00; Stop 07/27/19 at 10:05; Status DC Verapamil HCl (Verapamil) 2.5 mg 1X ONCE IART Last administered on 07/27/19at 11:46; Start 07/27/19 at 10:00; Stop 07/27/19 at 10:05; Status DC Heparin Sodium (Porcine) (Heparin Sodium) 2,500 unit 1X ONCE IART Last administered on 07/27/19at 11:48; Start 07/27/19 at 10:00; Stop 07/27/19 at 10:05; Status DC Heparin Sodium/ Sodium Chloride (HEPARIN for ARTERIAL LINE FLUSH) 1,000 unit 1X ONCE IART Last administered on 07/27/19at 11:44; Start 07/27/19 at 10:00; Stop 07/27/19 at 10:05; Status DC Heparin Sodium/ Sodium Chloride (HEPARIN for ARTERIAL LINE FLUSH) 1,000 unit 1X ONCE IART Last administered on 07/27/19at 11:44; Start 07/27/19 at 10:00; Stop 07/27/19 at 10:05; Status DC Midazolam HCl (Versed) 5 mg 1X ONCE IV Last administered on 07/27/19at 11:46; Start 07/27/19 at 10:00; Stop 07/27/19 at 10:05; Status DC Fentanyl Citrate (Fentanyl 2ml Vial) 100 mcg 1X ONCE IV Last administered on 07/27/19at 11:47; Start 07/27/19 at 10:00; Stop 07/27/19 at 10:05; Status DC Iodixanol (Visipaque 320) 100 ml 1X ONCE IART Last administered on 07/27/19at 11:45; Start 07/27/19 at 10:00; Stop 07/27/19 at 10:05; Status DC Lidocaine HCl (Xylocaine-Mpf 1% 2ml Vial) 2 ml 1X ONCE INJ Last administered on 07/27/19at 11:45; Start 07/27/19 at 10:00; Stop 07/27/19 at 10:05; Status DC Tirofiban/Sodium Chloride 100 ml @ As Directed STK-MED ONCE IV ; Start 07/27/19 at 10:11; Stop 07/27/19 at 10:11; Status DC Heparin Sodium (Porcine) (Heparin Sodium) 4,000 unit 1X ONCE IV Last administered on 07/27/19at 11:48; Start 07/27/19 at 10:18; Stop 07/27/19 at 10:24; Status DC Tirofiban/Sodium Chloride 100 ml @ 0 mls/hr CONT PRN IV PER PROTOCOL Last administered on 07/28/19at 01:21; Start 07/27/19 at 10:16; Stop 07/28/19 at 04:15; Status DC Iodixanol (Visipaque 320) 100 ml STK-MED ONCE .ROUTE ; Start 07/27/19 at 10:30; Stop 07/27/19 at 10:30; Status DC Nitroglycerin (Nitroglycerin) 200 mcg STK-MED ONCE .ROUTE ; Start 07/27/19 at 10:50; Stop 07/27/19 at 10:50; Status DC Nitroglycerin (Nitroglycerin) 200 mcg 1X ONCE ICAR Last administered on 07/27/19at 11:45; Start 07/27/19 at 11:00; Stop 07/27/19 at 11:01; Status DC Iodixanol (Visipaque 320) 100 ml STK-MED ONCE .ROUTE ; Start 07/27/19 at 10:57; Stop 07/27/19 at 10:57; Status DC Phenylephrine HCl (PHENYLEPHRINE in 0.9% NACL PF) 1 mg STK-MED ONCE IV ; Start 07/27/19 at 11:05; Stop 07/27/19 at 11:06; Status DC Atropine Sulfate (ATROPINE 1mg SYRINGE) 1 mg STK-MED ONCE .ROUTE ; Start 07/27/19 at 11:06; Stop 07/27/19 at 11:06; Status DC Sodium Nitroprusside (Nitropress) 50 mg STK-MED ONCE IV ; Start 07/27/19 at 11:11; Stop 07/27/19 at 11:12; Status DC Sodium Nitroprusside (Nipride) 100 mcg 1X ONCE INT CORON Last administered on 07/27/19at 11:15; Start 07/27/19 at 11:30; Stop 07/27/19 at 11:31; Status DC Prasugrel (Effient) 10 mg STK-MED ONCE .ROUTE ; Start 07/27/19 at 11:40; Stop 07/27/19 at 11:40; Status DC Prasugrel (Effient) 60 mg 1X ONCE PO Last administered on 07/27/19at 11:42; Start 07/27/19 at 11:42; Stop 07/27/19 at 12:43; Status DC Lidocaine (Lidoderm) 1 patch DAILY TD Last administered on 07/27/19at 14:14; Start 07/27/19 at 14:00 Miscellaneous (Lidoderm Patch Removal) 1 ea QHS MC Last administered on 07/27/19at 21:00; Start 07/27/19 at 21:00 Acetaminophen/ Hydrocodone Bitart (Lortab 5/325) 1 tab PRN Q6HRS PRN PO PAIN Last administered on 07/27/19at 21:21; Start 07/27/19 at 14:00 Amlodipine Besylate (Norvasc) 10 mg 1X ONCE PO ; Start 07/27/19 at 14:00; Stop 07/27/19 at 14:01; Status UNV Carvedilol (Coreg) 6.25 mg BIDWMEALS PO Last administered on 07/28/19at 08:49; Start 07/27/19 at 17:00 Amlodipine Besylate (Norvasc) 10 mg 1X ONCE PO Last administered on 07/27/19at 14:15; Start 07/27/19 at 14:30; Stop 07/27/19 at 14:31; Status DC Info (Anti-Coagulation Monitoring By Pharmacy) 1 each PRN DAILY PRN MC SEE COMMENTS Last administered on 07/28/19at 10:04; Start 07/28/19 at 08:15 Active Scripts Active Reported Lisinopril 40 Mg Tablet 1 Tab PO DAILY Vitals/I & O Vital Sign - Last 24 Hours 07/27/19 07/27/19 07/27/19 07/27/19 11:45 11:46 11:47 11:55 Pulse 58 62 63 Resp 20 20 B/P (MAP) 150/95 157/103 (121) Pulse Ox 98 98 O2 Delivery Nasal Cannula Nasal Cannula O2 Flow Rate 2.0 2.0 07/27/19 07/27/19 07/27/19 07/27/19 12:10 12:14 12:19 12:38 Temp 97.9 97.9 Pulse 68 66 70 Resp 20 16 B/P (MAP) 162/108 (126) 157/103 (121) 184/115 (138) Pulse Ox 97 O2 Delivery Room Air Room Air 07/27/19 07/27/19 07/27/19 07/27/19 13:08 13:25 14:10 14:15 Pulse 69 70 79 B/P (MAP) 179/105 (129) 144/79 (100) 161/104 (123) 161/104 07/27/19 07/27/19 07/27/19 07/27/19 14:16 14:56 15:16 15:40 Temp 98.2 98.2 Pulse 98 Resp 16 20 16 B/P (MAP) 158/90 (112) 149/89 (109) Pulse Ox 98 O2 Delivery Room Air Room Air Room Air 07/27/19 07/27/19 07/27/19 07/27/19 17:40 19:30 20:00 21:21 Temp 98.1 98.1 Pulse 98 83 Resp 18 18 B/P (MAP) 149/89 167/99 (121) Pulse Ox 97 97 O2 Delivery Room Air Room Air Room Air O2 Flow Rate 2.0 07/27/19 07/27/19 07/28/19 07/28/19 22:21 22:31 02:36 07:15 Temp 98.2 98.4 98.0 98.2 98.4 98.0 Pulse 70 86 79 Resp 18 18 18 20 B/P (MAP) 148/74 (98) 139/85 (103) 159/94 (115) Pulse Ox 97 99 98 96 O2 Delivery Room Air Room Air Room Air Room Air O2 Flow Rate 2.0 07/28/19 07/28/19 08:00 08:49 Pulse 79 B/P (MAP) 159/94 O2 Delivery Room Air Intake and Output 07/27/19 07/27/19 07/28/19 15:00 23:00 07:00 Intake Total 240 ml 1390 ml 400 ml Balance 240 ml 1390 ml 400 ml RILEY JOHNSON MD Jul 28, 2019 10:37
[2019-07-28 11:09] VITALS: BP 148/90
[2019-07-28] MEDS: HEPARIN 25,000UTS/250ML PREMIX 250 ML IV PRN (11:41)
[2019-07-28 14:41] VITALS: BP 151/90
--- NOTE | 2019-07-28 15:31 | PDOC ---
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[employer] 07/28/19 1531: CARDIO Progress Notes Date and Time Date of Service 07/28/2019 Time of Evaluation 1500 Subjective Subjective: No Chest Pain, No shortness of breath, No Palpitations Vitals Vitals Vital Signs Date Time Temp Pulse Resp B/P (MAP) Pulse Ox O2 Delivery O2 Flow Rate FiO2 07/28/19 14:41 98.1 84 20 151/90 (110) 97 Room Air 98.1 07/27/19 22:21 2.0 Weight Weight [ ] Input and Output Intake and Output Intake and Output 07/28/19 07:00 Intake Total 2030 ml Balance 2030 ml Intake Oral 930 ml IV Total 1100 ml # Voids 5 Laboratory Labs Laboratory Tests Test 07/28/19 00:05 07/28/19 07:55 07/28/19 14:00 Heparin Anti-Xa Act, Unfractionated < 0.10 IU/mL (0.30-0.70) 0.45 IU/mL (0.30-0.70) 0.49 IU/mL (0.30-0.70) Physical Exam HEENT: Neck Supple W Full Motion Chest: Symmetric LUNGS: Clear to Auscultation Heart: S1S2, RRR (SR) Abdomen: Soft N/T Extremities: No Edema, No Calf Tenderness Neurology: alert, oriented, follow commands Other Exams right wrist arteriotomy site intact no swelling no erythema, neurovascular status intact to right hand. Assessment Assessment 1. NSTEMI: Post PCI/JACINTA awaiting full report. 2. Accelerated HTN: labile 3. Obesity 4. Med noncompliance 5. 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 HLP 7. Metabolic syndrome 8. Suspect CKD3: Cr at 1.4 Recommendations ASA 81 mg daily. 30 mg of effient today then 10 mg starting tomorrow. DC heparing start on xarelto 2.5 mg bid Lipitor. Increase coreg and start on lisinopril Will need outpt UMM workup Dietitian consult. Discussed with , son and pt in regards to treatment compliance. Follow up in office Cardiac rehab JERRI PAN MD 07/28/19 9513: CARDIO Progress Notes Plan Plan Pt. seen and examined. 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 In 30 days, we will DC asa and continue prasugrel and xarelto only. No chest pain tele unremarkable Labs stable. Ok to DC tomorrow if stable. Thanks 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 APRN Jul 28, 2019 15:31 JERRI PAN MD Jul 28, 2019 18:53
[2019-07-28] MEDS ORDERED: PRASUGREL 10 MG TABLET. PO ONE (16:15)
[2019-07-28] MEDS: CARVEDILOL 12.5 MG TABLET. PO SCH (17:01)
--- NOTE | 2019-07-28 17:04 | CARD ---
MR#: [id number] Date of Study: 07/27/2019 Ordering Physician: 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, Referring Physician: 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, Tech: RT Shena (R) APPROVED REPORT Technologist: Daina Pineda RT (R) Nurse: Corinne Soto R.N. 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 INDICATION The indication(s) include : non-STEMI . CSHA Clinical Frailty Scale [facility] Clinical Frailty Scale: Moderately Frail Heart Failure Heart Failure: Yes If Yes, Newly Diagnosed: Yes If Yes, HF Type: Diastolic If Yes, NYHA Class: Class II CASE TECHNIQUE During this case, Fluoroscopy and low osmolar contrast were used for imaging. PROCEDURE NARRATIVE INFORMED CONSENT: After explaining the risks and benefits of the procedure and alternatives, informed consent was obtained. The patient was brought electively to the cardiac catheterization lab. A timeout was performed confi rming the patient's name, date of , procedure, and site of procedure. All necessary personnel w ere wearing the appropriate protective equipment and radiation monitor devices. (See nursing notes for medications administered). ACCESS: The right wrist was sterilely prepped and draped in the usual fashion. The right wrist was infiltrat ed with 1 mL of 2% lidocaine for subcutaneous anesthesia. A 6 Uzbek Terumo glide sheath was inserte d into the right radial artery without difficulty. CORONARY ANGIOGRAPHY: Right and left coronary angiography was performed using a 6Fr TIG 4.0 catheter. Left ventricular en d diastolic pressure was obtained with a TIG catheter and pullback was performed after left ventricul ography. All catheter exchanges and advancements were performed over a guidewire. FINDINGS: HEMODYNAMICS: LVEDP 15 mm Hg No gradient on LV to aortic pullback. AO: 128/78 LEFT VENTRICULOGRAM: Deferred due to renal insufficiency. CORONARY ANGIOGRAPHY: LM is a large caliber vessel with normal angiographic appearance. LAD is a large caliber vessel with a mid focal 90% stenosis. Ramus is a small caliber vessel with an ostial 90% stenosis. LCx is a large caliber dominant vessel with a proximal 50% stenosis. There is also a distal 60% steno sis involving the ostium of the LPDA. OM1 is a moderate caliber vessel with a proximal 100% occlusion, which appears to be subacute and the culprit lesion. LPL1 is a moderate caliber vessel with normal angiographic appearance. RCA is a small caliber non-dominant vessel with a proximal 100% occlusion with robust right to right collaterals. INTERVENTIONAL TECHNIQUE: PCI of complex subtotal occlusion of obtuse marginal 1 Heparin and tirofiban were used for anticoagulation. Through a 6 Uzbek EBU 3.5 guide catheter a pro- water wire was initially unable to be traversed past the proximal obtuse marginal stenosis/occlusion. Next, a Choice PT wire was also unable to be traversed. A side on blue wire was also unable to trave rse the lesion. Next, with the aid of a Corsair catheter a fixed wing pilot 200 wire was ultimately able to cros s the stenosis and antegrade recanalization was confirmed with contrast injection. Balloon angioplast y was performed with a 2.0 x 12 mm balloon and the lesion was stented with a 3.0 x 23 mm Alpine drug- eluting stent. INTERVENTIONAL technique: PCI of LAD Attention was then turned to the critical stenosis in the LAD. The lesion was then crossed with a pro -water wire. Balloon angioplasty was performed with a 2.0 x 12 mm balloon and the lesion was stented with a 4.0 x 15 mm Alpine drug-eluting stent. There was evidence of distal embolic phenomena after st ent placement with evidence of microvascular no reflow. Multiple doses of intracoronary vasodilators including nitroprusside, nitroglycerin and verapamil were administered. Despite this the very apical LAD had LIZ 1 flow. Next, the mid LAD stent appeared to be well expanded with a hazy appearance of t he distal stent edge concerning for dissection. Therefore a 3.5 x 18 mm drug-eluting stent was placed in an overlapping fashion. Final angiography demonstrated excellent stent expansion with LIZ-3 flow in the LAD with persistent apical LIZ 1 flow. The patient was continued on a heparin drip and tirofiban drips. The patient was also loaded with Pra sugrel 60mg. no acute complications are noted. Complex PCI due to significant heavy atherosclerotic burden, tortuosity and distal emboli. The patient tolerated the procedure well. CLOSURE: At case completion the right radial sheath was removed and a Terumo radial band was applied with 13 m l of air. COMPLICATIONS: The patient tolerated the procedure well and there were no immediate complications. PCI Technique Lesion The lesion stenosis prior to intervention was 100% with LIZ 0 flow. LIZ Flow LIZ Flow (Pre-Intervention): LIZ-0 LIZ Flow (Post-Intervention): LIZ-3 LIZ Flow LZI Flow (Pre-Intervention): LIZ-3 LIZ Flow (Post-Intervention): LIZ-3 Conclusion 1. Severe three-vessel coronary artery disease 2. Successful PCI of subacute total occlusion of the first obtuse marginal with implantation of a 3.0 x 23 mm Alpine drug-eluting stent 3. Successful PCI of the mid LAD critical stenosis with overlapping 4.0 x 15 and 3.5/18 JACINTA. Recommendations ASA 81mg daily Prasugrel 10mg daily Xarelto 2.5mg daily High dose statin therapy. Signed by : Lawrence Bean, Electronically Approved : 07/28/2019 17:03:46
[2019-07-28] MEDS: LISINOPRIL 10 MG TABLET PO SCH (17:06)
[2019-07-28 19:05] VITALS: BP 118/77
[2019-07-28] MEDS: PATCH REMOVAL. MC SCH (21:00)
[2019-07-28] MEDS: ATORVASTATIN CALCIUM 40 MG TABLET. PO SCH (21:13)
[2019-07-28] MEDS: RIVAROXABAN 10 MG TABLET. PO SCH (21:13)
[2019-07-28 23:00] VITALS: BP 113/64
[2019-07-29 03:50] VITALS: BP 110/73
[2019-07-29 05:35] LABS: HEMOGLOBIN 15.9 g/dL (13.0-17.5); RED BLOOD COUNT 5.15 x10^6/uL (4.30-5.70); RED CELL DISTRIBUTION WIDTH 14.2 % (11.5-14.5); WHITE BLOOD COUNT 7.7 x10^3/uL (4.0-11.0)
[2019-07-29 07:00] VITALS: BP 116/67
[2019-07-29] MEDS ORDERED: PRASUGREL 10 MG TABLET. PO SCH (08:00)
[2019-07-29] MEDS ORDERED: ASPIRIN ENTERIC COATED 81 MG TABLET.DR. PO SCH (08:00)
[2019-07-29] MEDS: LIDOCAINE (700MG/PATCH) PATCH. TD SCH (09:00)
[2019-07-29] MEDS: RIVAROXABAN 10 MG TABLET. PO SCH (09:01)
[2019-07-29] MEDS: CARVEDILOL 12.5 MG TABLET. PO SCH ×2 (09:01→16:55)
[2019-07-29] MEDS: LISINOPRIL 10 MG TABLET PO SCH (09:02)
--- NOTE | 2019-07-29 09:31 | PDOC ---
PROGRESS NOTES History of Present Illness History of Present Illness VTE Prophylaxis Ordered VTE Prophylaxis Devices: Yes VTE Pharmacological Prophylaxi: Yes DISCHARGE DX Assessment/Plan IMPRESSION 1, ACUTE NSTEMI: ACS 2. Accelerated HTN 3. Obesity 4. Med noncompliance 5. SLEEP APNEA 6. HYPERLIPIDEMIA 7. Metabolic syndrome PLAN ADMIT CVC BED CONSULT CARDIOLOGY triple-vessel disease occluded obtuse marginal post PCI complex PCI of the LAD ASA 81 mg daily. 30 mg of effient today then 10 mg starting tomorrow. DC heparing start on xarelto 2.5 mg bid Lipitor. Increase coreg and start on lisinopril D/C PLANNING 35 MIN Vitals Vitals Vital Signs Date Time Temp Pulse Resp B/P (MAP) Pulse Ox O2 Delivery O2 Flow Rate FiO2 07/29/19 09:02 76 116/67 07/29/19 08:00 Room Air 07/29/19 07:00 98.1 20 96 98.1 Physical Exam General: Alert, Oriented X3, Cooperative, No acute distress Heart: Regular rate (SR), Normal S1, Normal S2, No murmurs Lungs: Clear Abdomen: Soft Extremities: No cyanosis Skin: No breakdown Labs LABS Laboratory Tests Test 07/28/19 14:00 07/28/19 17:52 07/28/19 21:18 07/29/19 04:45 Heparin Anti-Xa Act, Unfractionated 0.49 IU/mL (0.30-0.70) Glucose (Fingerstick) 135 mg/dL (70-99) 97 mg/dL (70-99) White Blood Count 7.7 x10^3/uL (4.0-11.0) Red Blood Count 5.15 x10^6/uL (4.30-5.70) Hemoglobin 15.9 g/dL (13.0-17.5) Hematocrit 47.0 % (39.0-53.0) Mean Corpuscular Volume 91 fL (79-100) Mean Corpuscular Hemoglobin 31 pg (25-35) Mean Corpuscular Hemoglobin Concent 34 g/dL (31-37) Red Cell Distribution Width 14.2 % (11.5-14.5) Platelet Count 206 x10^3/uL (140-400) Test 07/29/19 07:46 Glucose (Fingerstick) 107 mg/dL (70-99) Assessment and Plan Assessmemt and Plan Problems Medical Problems: (1) Accelerated hypertension Status: Acute (2) NSTEMI (non-ST elevated myocardial infarction) Status: Acute Comment Review of Relevant I have reviewed the following items amadou (where applicable) has been applied. Labs Laboratory Tests Test 07/27/19 10:13 07/27/19 11:07 07/27/19 13:05 07/28/19 00:05 Activated Clotting Time 146 sec (92-181) 292 sec (92-181) Urine Collection Type Unknown Urine Color Yellow Urine Clarity Clear Urine pH 7.0 Urine Specific [place] >=1.030 Urine Protein 100 mg/dL (NEG-TRACE) Urine Glucose (UA) Negative mg/dL (NEG) Urine Ketones (Stick) Negative mg/dL (NEG) Urine Blood Trace (NEG) Urine Nitrite Negative (NEG) Urine Bilirubin Negative (NEG) Urine Urobilinogen Dipstick 0.2 mg/dL (0.2 mg/dL) Urine Leukocyte Esterase Negative (NEG) Urine RBC 0 /HPF (0-2) Urine WBC 0 /HPF (0-4) Urine Bacteria 0 /HPF (0-FEW) Heparin Anti-Xa Act, Unfractionated < 0.10 IU/mL (0.30-0.70) Test 07/28/19 07:55 07/28/19 14:00 07/28/19 17:52 07/28/19 21:18 Heparin Anti-Xa Act, Unfractionated 0.45 IU/mL (0.30-0.70) 0.49 IU/mL (0.30-0.70) Glucose (Fingerstick) 135 mg/dL (70-99) 97 mg/dL (70-99) Test 07/29/19 04:45 07/29/19 07:46 White Blood Count 7.7 x10^3/uL (4.0-11.0) Red Blood Count 5.15 x10^6/uL (4.30-5.70) Hemoglobin 15.9 g/dL (13.0-17.5) Hematocrit 47.0 % (39.0-53.0) Mean Corpuscular Volume 91 fL (79-100) Mean Corpuscular Hemoglobin 31 pg (25-35) Mean Corpuscular Hemoglobin Concent 34 g/dL (31-37) Red Cell Distribution Width 14.2 % (11.5-14.5) Platelet Count 206 x10^3/uL (140-400) Glucose (Fingerstick) 107 mg/dL (70-99) Laboratory Tests Test 07/28/19 14:00 07/28/19 17:52 07/28/19 21:18 07/29/19 04:45 Heparin Anti-Xa Act, Unfractionated 0.49 IU/mL (0.30-0.70) Glucose (Fingerstick) 135 mg/dL (70-99) 97 mg/dL (70-99) White Blood Count 7.7 x10^3/uL (4.0-11.0) Red Blood Count 5.15 x10^6/uL (4.30-5.70) Hemoglobin 15.9 g/dL (13.0-17.5) Hematocrit 47.0 % (39.0-53.0) Mean Corpuscular Volume 91 fL (79-100) Mean Corpuscular Hemoglobin 31 pg (25-35) Mean Corpuscular Hemoglobin Concent 34 g/dL (31-37) Red Cell Distribution Width 14.2 % (11.5-14.5) Platelet Count 206 x10^3/uL (140-400) Test 07/29/19 07:46 Glucose (Fingerstick) 107 mg/dL (70-99) Medications Current Medications Aspirin (Children'S Aspirin) 324 mg 1X ONCE PO Last administered on 07/26/19at 18:47; Start 07/26/19 at 18:15; Stop 07/26/19 at 18:17; Status DC Nitroglycerin (Nitrostat) 0.4 mg PRN Q5MIN PRN SL CP RATING > 1/10 Last administered on 07/26/19at 19:18; Start 07/26/19 at 18:15; Stop 07/26/19 at 19:47; Status DC Labetalol HCl (Normodyne Iv Push) 10 mg 1X ONCE IVP Last administered on 07/26/19at 18:48; Start 07/26/19 at 18:30; Stop 07/26/19 at 18:31; Status DC Heparin Sodium (Porcine) (Heparin Sodium) 4,000 unit 1X ONCE IV Last administered on 07/26/19at 19:43; Start 07/26/19 at 19:15; Stop 07/26/19 at 19:16 ; Status DC Heparin Sodium/ Dextrose 250 ml @ 0 mls/hr CONT PRN IV PER PROTOCOL Last administered on 07/28/19at 11:41; Start 07/26/19 at 19:15; Stop 07/28/19 at 18:39; Status DC Heparin Sodium (Porcine) (Heparin Sodium) 2,450 unit PRN Q6HRS PRN IV FOR UFH LEVEL LESS THAN 0.2 Last administered on 07/28/19at 01:28; Start 07/26/19 at 19:15; Stop 07/28/19 at 18:39; Status DC Ondansetron HCl (Zofran) 4 mg PRN Q8HRS PRN IV NAUSEA/VOMITING; Start 07/26/19 at 19:45; Stop 07/27/19 at 19:44; Status DC Morphine Sulfate (Morphine Sulfate) 2 mg PRN Q2HR PRN IV PAIN Last administered on 07/27/19at 07:25; Start 07/26/19 at 19:45; Stop 07/27/19 at 19:44; Status DC Acetaminophen (Tylenol) 650 mg PRN Q4HRS PRN PO FEVER; Start 07/26/19 at 19:45; Stop 07/27/19 at 19:44; Status DC Nitroglycerin (Nitrostat) 0.4 mg PRN Q5MIN PRN SL CHEST PAIN; Start 07/26/19 at 19:45; Stop 07/27/19 at 19:44; Status DC Labetalol HCl (Normodyne Iv Push) 10 mg PRN Q4HRS PRN IVP ELEVATED BP, SEE COMMENTS Last administered on 07/27/19at 03:59; Start 07/26/19 at 20:00; Stop 07/27/19 at 09:11; Status DC Sodium Chloride 1,000 ml @ 75 mls/hr 1X ONCE IV Last administered on 07/27/19at 09:30; Start 07/27/19 at 09:00; Stop 07/27/19 at 22:19; Status DC Labetalol HCl (Normodyne Iv Push) 20 mg PRN Q4HRS PRN IVP ELEVATED BP, SEE COMMENTS; Start 07/27/19 at 09:15 Atorvastatin Calcium (Lipitor) 40 mg QHS PO Last administered on 07/28/19at 21:13; Start 07/27/19 at 21:00 Labetalol HCl (Normodyne Iv Push) 20 mg 1X ONCE IVP Last administered on 07/27/19at 09:30; Start 07/27/19 at 09:30; Stop 07/27/19 at 09:31; Status DC Lidocaine HCl (Xylocaine-Mpf 1% 2ml Vial) 2 ml STK-MED ONCE .ROUTE ; Start 07/27/19 at 09:32; Stop 07/27/19 at 09:32; Status DC Heparin Sodium/ Sodium Chloride 1,000 ml @ As Directed STK-MED ONCE .ROUTE ; Start 07/27/19 at 09:32; Stop 07/27/19 at 09:33; Status DC Iodixanol (Visipaque 320) 100 ml STK-MED ONCE .ROUTE ; Start 07/27/19 at 09:33; Stop 07/27/19 at 09:34; Status DC Fentanyl Citrate (Fentanyl 2ml Vial) 100 mcg STK-MED ONCE .ROUTE ; Start 07/27/19 at 09:34; Stop 07/27/19 at 09:34; Status DC Midazolam HCl (Versed) 5 mg STK-MED ONCE .ROUTE ; Start 07/27/19 at 09:34; Stop 07/27/19 at 09:34; Status DC Heparin Sodium (Porcine) (Heparin Sodium) 10,000 unit STK-MED ONCE .ROUTE ; Start 07/27/19 at 09:34; Stop 07/27/19 at 09:34; Status DC Verapamil HCl (Verapamil) 5 mg STK-MED ONCE .ROUTE ; Start 07/27/19 at 09:34; Stop 07/27/19 at 09:34; Status DC Nitroglycerin (Nitroglycerin) 200 mcg STK-MED ONCE .ROUTE ; Start 07/27/19 at 09:34; Stop 07/27/19 at 09:35; Status DC Nitroglycerin (Nitroglycerin) 200 mcg 1X ONCE IART Last administered on 07/27/19at 11:45; Start 07/27/19 at 10:00; Stop 07/27/19 at 10:05; Status DC Verapamil HCl (Verapamil) 2.5 mg 1X ONCE IART Last administered on 07/27/19 11:46; Start 07/27/19 at 10:00; Stop 07/27/19 at 10:05; Status DC Heparin Sodium (Porcine) (Heparin Sodium) 2,500 unit 1X ONCE IART Last administered on 07/27/19at 11:48; Start 07/27/19 at 10:00; Stop 07/27/19 at 10:05; Status DC Heparin Sodium/ Sodium Chloride (HEPARIN for ARTERIAL LINE FLUSH) 1,000 unit 1X ONCE IART Last administered on 07/27/19at 11:44; Start 07/27/19 at 10:00; Stop 07/27/19 at 10:05; Status DC Heparin Sodium/ Sodium Chloride (HEPARIN for ARTERIAL LINE FLUSH) 1,000 unit 1X ONCE IART Last administered on 07/27/19 11:44; Start 07/27/19 at 10:00; Stop 07/27/19 at 10:05; Status DC Midazolam HCl (Versed) 5 mg 1X ONCE IV Last administered on 07/27/19 11:46; Start 07/27/19 at 10:00; Stop 07/27/19 at 10:05; Status DC Fentanyl Citrate (Fentanyl 2ml Vial) 100 mcg 1X ONCE IV Last administered on 07/27/19at 11:47; Start 07/27/19 at 10:00; Stop 07/27/19 at 10:05; Status DC Iodixanol (Visipaque 320) 100 ml 1X ONCE IART Last administered on 07/27/19at 11:45; Start 07/27/19 at 10:00; Stop 07/27/19 at 10:05; Status DC Lidocaine HCl (Xylocaine-Mpf 1% 2ml Vial) 2 ml 1X ONCE INJ Last administered on 07/27/19at 11:45; Start 07/27/19 at 10:00; Stop 07/27/19 at 10:05; Status DC Tirofiban/Sodium Chloride 100 ml @ As Directed STK-MED ONCE IV ; Start 07/27/19 at 10:11; Stop 07/27/19 at 10:11; Status DC Heparin Sodium (Porcine) (Heparin Sodium) 4,000 unit 1X ONCE IV Last administered on 07/27/19at 11:48; Start 07/27/19 at 10:18; Stop 07/27/19 at 10:24; Status DC Tirofiban/Sodium Chloride 100 ml @ 0 mls/hr CONT PRN IV PER PROTOCOL Last administered on 07/28/19at 01:21; Start 07/27/19 at 10:16; Stop 07/28/19 at 04:15; Status DC Iodixanol (Visipaque 320) 100 ml STK-MED ONCE .ROUTE ; Start 07/27/19 at 10:30; Stop 07/27/19 at 10:30; Status DC Nitroglycerin (Nitroglycerin) 200 mcg STK-MED ONCE .ROUTE ; Start 07/27/19 at 10:50; Stop 07/27/19 at 10:50; Status DC Nitroglycerin (Nitroglycerin) 200 mcg 1X ONCE ICAR Last administered on 07/27/19at 11:45; Start 07/27/19 at 11:00; Stop 07/27/19 at 11:01; Status DC Iodixanol (Visipaque 320) 100 ml STK-MED ONCE .ROUTE ; Start 07/27/19 at 10:57; Stop 07/27/19 at 10:57; Status DC Phenylephrine HCl (PHENYLEPHRINE in 0.9% NACL PF) 1 mg STK-MED ONCE IV ; Start 07/27/19 at 11:05; Stop 07/27/19 at 11:06; Status DC Atropine Sulfate (ATROPINE 1mg SYRINGE) 1 mg STK-MED ONCE .ROUTE ; Start 07/27/19 at 11:06; Stop 07/27/19 at 11:06; Status DC Sodium Nitroprusside (Nitropress) 50 mg STK-MED ONCE IV ; Start 07/27/19 at 11:11; Stop 07/27/19 at 11:12; Status DC Sodium Nitroprusside (Nipride) 100 mcg 1X ONCE INT CORON Last administered on 07/27/19at 11:15; Start 07/27/19 at 11:30; Stop 07/27/19 at 11:31; Status DC Prasugrel (Effient) 10 mg STK-MED ONCE .ROUTE ; Start 07/27/19 at 11:40; Stop 07/27/19 at 11:40; Status DC Prasugrel (Effient) 60 mg 1X ONCE PO Last administered on 07/27/19at 11:42; Start 07/27/19 at 11:42; Stop 07/27/19 at 12:43; Status DC Lidocaine (Lidoderm) 1 patch DAILY TD Last administered on 07/27/19at 14:14; Start 07/27/19 at 14:00 Miscellaneous (Lidoderm Patch Removal) 1 ea QHS MC Last administered on 07/28/19at 21:00; Start 07/27/19 at 21:00 Acetaminophen/ Hydrocodone Bitart (Lortab 5/325) 1 tab PRN Q6HRS PRN PO PAIN Last administered on 07/27/19at 21:21; Start 07/27/19 at 14:00 Amlodipine Besylate (Norvasc) 10 mg 1X ONCE PO ; Start 07/27/19 at 14:00; Stop 07/27/19 at 14:01; Status UNV Carvedilol (Coreg) 6.25 mg BIDWMEALS PO Last administered on 07/28/19at 08:49; Start 07/27/19 at 17:00; Stop 07/28/19 at 15:24; Status DC Amlodipine Besylate (Norvasc) 10 mg 1X ONCE PO Last administered on 07/27/19at 14:15; Start 07/27/19 at 14:30; Stop 07/27/19 at 14:31; Status DC Info (Anti-Coagulation Monitoring By Pharmacy) 1 each PRN DAILY PRN MC SEE COMMENTS Last administered on 07/28/19at 10:04; Start 07/28/19 at 08:15 Carvedilol (Coreg) 12.5 mg BIDWMEALS PO Last administered on 07/29/19at 09:01; Start 07/28/19 at 17:00 Lisinopril (Prinivil) 5 mg DAILY PO Last administered on 07/29/19at 09:02; Start 07/28/19 at 16:00 Rivaroxaban (Xarelto) 2.5 mg BID PO Last administered on 07/29/19 09:01; Start 07/28/19 at 21:00 Prasugrel (Effient) 10 mg DAILYWBKFT PO Last administered on 07/29/19at 09:01; Start 07/29/19 at 08:00 Aspirin (Ecotrin) 81 mg DAILYWBKFT PO Last administered on 07/29/19at 09:01; Start 07/29/19 at 08:00 Prasugrel (Effient) 30 mg 1X ONCE PO Last administered on 07/28/19at 16:59; Start 07/28/19 at 16:15; Stop 07/28/19 at 16:26; Status DC Active Scripts Active Reported Lisinopril 40 Mg Tablet 1 Tab PO DAILY Vitals/I & O Vital Sign - Last 24 Hours 07/28/19 07/28/19 07/28/19 07/28/19 11:09 14:41 17:01 17:06 Temp 97.8 98.1 97.8 98.1 Pulse 81 84 77 80 Resp 18 20 B/P (MAP) 148/90 (109) 151/90 (110) 134/80 134/80 Pulse Ox 96 97 O2 Delivery Room Air Room Air 07/28/19 07/28/19 07/28/19 07/29/19 19:05 19:50 23:00 03:50 Temp 98.3 98.1 97.9 98.3 98.1 97.9 Pulse 75 72 70 Resp 20 20 20 B/P (MAP) 118/77 (91) 113/64 (80) 110/73 (85) Pulse Ox 95 95 94 O2 Delivery Room Air Room Air Room Air Room Air 07/29/19 07/29/19 07/29/19 07/29/19 07:00 08:00 09:01 09:02 Temp 98.1 98.1 Pulse 68 77 76 Resp 20 B/P (MAP) 116/67 (83) 116/67 116/67 Pulse Ox 96 O2 Delivery Room Air Room Air Intake and Output 07/28/19 07/28/19 07/29/19 14:59 22:59 06:59 Intake Total 440 ml 360 ml 720 ml Balance 440 ml 360 ml 720 ml RILEY JOHNSON MD Jul 29, 2019 09:31
[2019-07-29 11:00] VITALS: BP 139/76
[2019-07-29 15:00] VITALS: BP 119/65
[2019-07-29 16:55] VITALS: BP 123/85
[2019-07-29] MEDS ORDERED: LIDO700A21 TD (17:12)
[2019-07-29] MEDS ORDERED: LISI10TA2 PO (17:12)
[2019-07-29] MEDS ORDERED: ATOR40TA59 PO (17:12)
[2019-07-29] MEDS ORDERED: HYDR-2761 PO (17:12)
[2019-07-29] MEDS ORDERED: ASPI-612 PO (17:12)
[2019-07-29] MEDS ORDERED: CARV12.511 PO (17:12)
[2019-07-29] MEDS ORDERED: APIX2.5T PO (17:13)
--- NOTE | 2019-07-29 17:15 | DISCH ---
DISCHARGE INSTRUCTIONS Condition on Discharge Condition on Discharge: Stable Activity After Discharge Activity Instructions for Disc: Activity as tolerated Lifting Instructions after Dis: No heavy lifting, No pulling or pushing, Do not lift >10 pounds Driving Instructions after Dis: Do not drive today Weight Bearing Status after Di: As tolerated Diet after Discharge Diet after Discharge: Cardiac Contacting the after DC Call your doctor for: If your condition worsens Follow-Up Follow up with: Primary care in 1-2 weeks or as needed Follow Up With: Dr. Bean WednesdayAugust 24 at 1:30pm RILEY JOHNOSN MD Jul 29, 2019 17:15
--- NOTE | 2019-07-29 17:46 | DISCH ---
DISCHARGE INSTRUCTIONS Condition on Discharge Condition on Discharge: Stable Activity After Discharge Activity Instructions for Disc: Activity as tolerated Lifting Instructions after Dis: No heavy lifting, No pulling or pushing, Do not lift >10 pounds Driving Instructions after Dis: Do not drive today Weight Bearing Status after Di: As tolerated Diet after Discharge Diet after Discharge: Cardiac Contacting the after DC Call your doctor for: If your condition worsens Follow-Up Follow up with: Primary care in 1-2 weeks or as needed Follow Up With: Dr. Bean WednesdayAugust 24 at 1:30pm RILEY JOHNSON MD Jul 29, 2019 17:45
[2019-07-29] MEDS ORDERED: PRAS10TA9 PO (17:53)
== END 2019-07-29 18:35 | disposition home or self-care (01) | DRG 247 ==
LOC: ER 17:43 → 2 SOUTH 19:10
PROVIDERS: ADMIT Internal Medicine; ATTEND Internal Medicine
PROC: 027136Z Dilation of Coronary Artery, Two Arteries with Three Drug-eluting Intraluminal Devices, Percutaneous Approach (ICD-10-PCS; principal; 2019-07-27)
PROC: 4A023N7 Measurement of Cardiac Sampling and Pressure, Left Heart, Percutaneous Approach (ICD-10-PCS; 2019-07-27)
PROC: B2111ZZ Fluoroscopy of Multiple Coronary Arteries using Low Osmolar Contrast (ICD-10-PCS; 2019-07-27)
PROC: 3E033PZ Introduction of Platelet Inhibitor into Peripheral Vein, Percutaneous Approach (ICD-10-PCS; 2019-07-27)
DX: I21.4 Non-ST elevation (NSTEMI) myocardial infarction (principal); E66.9 Obesity, unspecified; E78.5 Hyperlipidemia, unspecified; E88.81 Metabolic syndrome and other insulin resistance; G47.33 Obstructive sleep apnea (adult) (pediatric); I10 Essential (primary) hypertension; Z82.49 Family history of ischemic heart disease and other diseases of the circulatory system; Z91.14 Patient's other noncompliance with medication regimen; Z98.61 Coronary angioplasty status; Z68.30 Body mass index [BMI] 30.0-30.9, adult
CPT/HCPCS: 36415; 71045; 80053; 80061; 81001; 82962; 83036; 83690; 83735; 83880; 84443; 84484; 85025; 85027; 85347; 85520; 85610; 85730; 92928; 93005; 93306; 93458; 99152; 99153; C1713; C1725; C1769; C1874; C1887; C1892; J1644; J2250; J2270; J3010; J3490; J7030; Q9967; G0378; J3246

== ENCOUNTER → 2020-09-09 | Outpatient (CLI) | payer BC, OTHER ==
[~2020-09-09] MED LIST: APIX2.5T PO; ASPI-886 PO; ATOR40TA59 PO; CARV12.511 PO; HYDR-2761 PO; LIDO700A21 TD; LISI-130 PO; LISI10TA16 PO; PRAS10TA9 PO
--- NOTE | 2020-09-09 15:29 | CARD ---
MR#: [id number] Date of Study: 09/09/2020 Ordering Physician: JERRI PAN, Referring Physician: JERRI PAN, Tech: Nakia Saldana [facility] APPROVED REPORT EXAM: Two-dimensional and M-mode echocardiogram with Doppler and color Doppler. Other Information Quality : Good INDICATION Cardiac Disease: CAD 2D DIMENSIONS Left Atrium(2D)3.3 (1.6-4.0cm)IVSd0.7 (0.7-1.1cm) Aortic Root(2D)2.9 (2.0-3.7cm)LVDd5.6 (3.9-5.9cm) LVOT Diameter2.2 (1.8-2.4cm)PWd0.9 (0.7-1.1cm) LVDs4.0 (2.5-4.0cm)FS (%) 29.0 % SV85.6 mlLVEF(%)55.1 (>50%) Aortic Valve AoV Peak Kian.160.3cm/sAoV VTI31.4cm AO Peak GR.10.3mmHgLVOT Peak Kian.134.9cm/s AO Mean GR.6mmHgAVA (VMAX)3.06cm2 AROLDO (VTI)3.10cm2 Mitral Valve MV E Buinwqwg92.0cm/sMV DECEL WUUL206za MV A Rlwcndav24.3cm/sE/A Ratio0.8 Tricuspid Valve TR P. Mvbditlj628vt/sRAP ZAIARLYM7cqKt TR Peak Gr.62zpKwPWJG76bwCa Pulmonary Vein S1 Lzlbinyp04.3cm/sD2 Vrefxhbs46.5cm/s LEFT VENTRICLE The left ventricle is normal size. There is normal left ventricular wall thickness. The left ventricu lar systolic function is normal and the ejection fraction is within normal range. The Ejection Fracti on is 55%. There is normal LV segmental wall motion. Transmitral Doppler flow pattern is Grade I-abno rmal relaxation pattern. RIGHT VENTRICLE The right ventricle is normal size. The right ventricular systolic function is normal. ATRIA The left atrium size is normal. The right atrium size is normal. The interatrial septum is intact wit h no evidence for an atrial septal defect or patent foramen ovale as noted on 2-D or Doppler imaging. AORTIC VALVE The aortic valve is calcified but opens well. Doppler and Color Flow revealed no significant aortic r egurgitation. There is no significant aortic valvular stenosis. MITRAL VALVE The mitral valve is calcified but opens well. There is no evidence of mitral valve prolapse. There is no mitral valve stenosis. Doppler and Color-flow revealed trace mitral regurgitation. TRICUSPID VALVE The tricuspid valve is normal in structure and function. Doppler and Color Flow revealed physiologica l tricuspid regurgitation. The PA pressure was estimated at 26 mmHg. There is no tricuspid valve sten osis. PULMONIC VALVE The pulmonic valve is not well visualized. Doppler and Color Flow revealed trace to mild pulmonic le vular regurgitation. There is no pulmonic valvular stenosis. GREAT VESSELS The aortic root is normal in size. The ascending aorta is not well seen. The IVC is normal in size an d collapses >50% with inspiration. PERICARDIAL EFFUSION There is no evidence of significant pericardial effusion. Critical Notification Critical Value: No <Conclusion> The left ventricular systolic function is normal and the ejection fraction is within normal range. Th e Ejection Fraction is 55%. There is normal LV segmental wall motion. Signed by : Jerri Pan, Electronically Approved : 09/09/2020 15:28:39
== END ==
LOC: ECHO 08:43
PROVIDERS: ATTEND Internal Medicine Cardiovascular Disease
DX: I08.8 Other rheumatic multiple valve diseases (principal); I25.10 Atherosclerotic heart disease of native coronary artery without angina pectoris
CPT/HCPCS: 93306

== ENCOUNTER → 2021-08-08 | Outpatient (CLI) | payer OTHER ==
[~2021-08-08] MED LIST changes: +REGADENOSON 0.4 MG/5 ML DISP.SYRIN. IV ONE
--- NOTE | 2021-08-10 17:23 | RAD ---
MR#: [id number] Date of Study: 08/08/2021 Ordering Physician: JERRI PAN, Referring Physician: DOUGLAS ALBA Tech: RT Katherine (R) (N) APPROVED REPORT Test Type: Pharmacological Stress Nurse/Tech: Nasra Bowden RN Test Indications: CAD Cardiac History: Hypertension,angioplasty 2 yrs. ago Medications: See Electronic Medical Record Medical History: See Electronic Medical Record Resting ECG: SR Resting Heart Rate: 80 bpm Resting Blood Pressure: 162/98mmHg Pretest Chest Pain: No chest pain Nurse/Tech Notes S1,S2 and lungs clear to auscultation. Consent: The procedure was explained to the patient in lay terms. Informed consent was witnessed. Benji eout was entered into [employer]. History and Stress Test performed by RT Katherine (R) (N) Pharm. Details Pharmacologic stress testing was performed using 0.4mg per 5ml of regadenoson given intravenously ove r 7-10 seconds. Stress Symptoms Nausea POST EXERCISE Reason for Termination: Infusion complete Target HR: No Max HR: 104 bpm 73% of Maximum Predicted HR: 142 bpm Max Blood Pressure: 161/83mmHg Blood Pressure response to exercise: Normal blood pressure response during stress. Heart Rate response to exercise: WNL Chest Pain: No. Arrhythmia: No. ST Change: No. INTERPRETATION Stress EKG Conclusion: The resting EKG shows a sinus rhythm and mild nonspecific ST-T wave changes. The stress EKG shows no significant changes from baseline. No EKG evidence of stress-induced ischemia. Imaging Protocol IMAGE PROTOCOL: Rest Tc-99m/stress Tc-99m 1 day Rest: Stress: Viability: Radiopharm.Tc99m KdpguxwssHu39f Sestamibi Dose10.5mCi 32mCi Duration 15min. 10min. Img Date 08/08/2021 08/08/2021 Inj-Img [id number]. 60min. Rest Admin Site:IV - Right AntecubitalAdministrator:RAFI Aragon, ARRT (R)(N) Stress Admin Site: IV - Right AntecubitalAdministrator: Lakia Jay, NMTCB, ARRT (R)(N) STRESS DATA End Diast. Vol.124.0mlAv. Heart Rate72.0bpm End Syst. Vol.36.0mlCO Index BSA0.0L/min Myocardial Lhsl859.0gEject. Jtfboqss33.0% Stress Rates Pk. Fill Rate2.66EDV/secLVtime Pk. Fill 225.41msec Pk. Empty Rate4.16ESV/secLVtime Pk. Uxwwd298.85msec 06/02 Pk. Fill1.68EDV/sec Stress Scores Regional WT1.00Summed WT10.00 Regional WM0.00Summed WM0.00 LV Perfusion The stress scans show a slight inferior wall defect. The rest scans show a mild inferior wall defect. Nuclear imaging shows no reversible ischemia. Nuclear imaging shows mild fixed thinning in the inferior wall with rest images showing a more signif icant defect. Most consistent with an attenuation defect. Wall Motion Left ventricular systolic function is intact with an ejection fraction of 71%. LV Perf. Quant 17 Seg. SSS4.00 17 Seg. SRS15.00 17 Seg. SDS0.00 Stress Defect Extent (% LAD)0.00Rest Defect Extent (% LAD)14.40Rev. Defect Extent (% LAD)0.00 Stress Defect Extent (% LCX) 52.50Rest Defect Extent (% LCX)57.50Rev. Defect Extent (% LCX)0.00 Stress Defect Extent (% RCA)0.00Rest Defect Extent (% RCA)25.60Rev. Defect Extent (% RCA)0.00 Stress Defect Extent (% SOO)11.30Rest Defect Extent (% SOO)27.20Rev. Defect Extent (% SOO)0.00 Conclusion 1. No EKG evidence of stress-induced ischemia. 2. Nuclear imaging shows no reversible ischemia. 3. Nuclear imaging shows fixed thinning of the inferior wall most consistent with attenuation defect. 4. Intact LV systolic function with an ejection fraction of greater than 70%. 5. Moderately low risk Lexiscan nuclear stress test with no evidence of reversible ischemia and an ej ection fraction of greater than 70%. Signed by : Venkat Truong MD Electronically Approved : 08/10/2021 17:22:45
== END ==
LOC: NM 08:20
PROVIDERS: ATTEND Internal Medicine Cardiovascular Disease
DX: I25.10 Atherosclerotic heart disease of native coronary artery without angina pectoris (principal)
CPT/HCPCS: 78452; 93017; A9500; J2785